=== PATIENT | female | born 1940 | race Caucasian/White ===

== ENCOUNTER 2016-08-21 08:58 | Observation (INO) ==
[2016-08-21] MEDS ORDERED: Acetaminophen 325 MG TABLET PO ONE (09:18)
--- NOTE | 2016-08-21 09:18 | Emergency Department Note ---
Disposition Clinical Impression: UTI (urinary tract infection) Qualifiers: Urinary tract infection type: acute cystitis Hematuria presence: without hematuria Qualified Code(s): N30.00 - Acute cystitis without hematuria Dementia Qualifiers: Dementia type: unspecified type Dementia behavioral disturbance: without behavioral disturbance Qualified Code(s): F03.90 - Unspecified dementia without behavioral disturbance Disposition: Admitted As Inpatient Condition: Fair Fall HPI - General Chief Complaint: ED Fall Stated Complaint: Fall Head Injury Time Seen by Provider: 08/21/16 09:06 Source: patient Nursing Notes Reviewed: Yes Vital Signs Reviewed: Yes - History of Present Illness HPI Narrative: Ms. Dahl, a 76yo female, presents from home by POV with daughter bedside. Chief complaint: Fall. Patient lives at home with her daughter. Daughter heard a sound at 1 AM and check on her mother who is in bed. It was dark and daughter did not notice anything unusual. cable braider this morning woke patient up and noticed blood on her pillow and pajamas. Patient states that she got up in the night and tripped but cannot remember what she tripped on. States she had the back of her head on the bed. Daughter cannot find blood or damage to any of the corners of the bed. When asked if the patient appears to be at her baseline, daughter notes that this is the first time the patient has not known her birthday. Denies the use of anticoagulants or antiplatelets. Patient denies headache, nausea, vomiting, chest pain, palpitations, abdominal pain, soreness or tenderness of her extremities or back. PMH: Dementia. remote CVA with right sided sequale. Multiple myeloma. COPD. CKD IV. Atrial fibrillation currently not anticoagulated. - Related Data Home Medications Medication Instructions Recorded Confirmed Cyanocobalamin (Vitamin B-12) 1,000 mcg PO DAILY 02/16/15 08/21/16 [Vitamin B-12] Montelukast [Singulair] 10 mg PO DAILY 02/16/15 08/21/16 Sucralfate [Carafate] 1 gm PO BID 02/16/15 08/21/16 Omeprazole [PriLOSEC] 20 mg PO BIDAC 02/20/15 08/21/16 Aspirin Enteric Coated [Aspirin] 81 mg PO DAILY 04/02/15 08/21/16 Atorvastatin Calcium [Lipitor] 20 mg PO DAILY 06/13/15 08/21/16 Donepezil HCl [Aricept] 10 mg PO HS 07/24/16 08/21/16 Lisinopril [Zestril] 10 mg PO DAILY 08/21/16 08/21/16 Oxybutynin [Ditropan] 5 mg PO BID 08/21/16 08/21/16 Previous Rx's Medication Instructions Recorded Ferrous Sulfate 325 mg PO BID #180 tablet 02/21/16 Carvedilol 3.125 mg PO BID #60 tablet 03/06/16 Folic Acid 1 mg PO DAILY #30 tablet 06/02/16 Prochlorperazine Maleate 10 mg PO Q6HR PRN #40 tablet 07/14/16 [Compazine] Allergies Allergy/AdvReac Type Severity Reaction Status Date / Time No Known Allergies Allergy Verified 05/05/16 08:55 All systems ED: reviewed and negative except as stated. Constitutional: Denies: fever, chills, weakness Eyes: Denies: vision change ENT ED: Reports: congestion. Denies: dysphagia Cardiovascular: Denies: chest pain, palpitations, dyspnea on exertion, orthopnea , edema, syncope Respiratory: Denies: cough, dyspnea, wheezes, hemoptysis, stridor Gastrointestinal: Denies: abdominal pain, nausea, vomiting, diarrhea, constipation, hematemesis, melena, hematochezia Genitourinary: Denies: urgency, dysuria, frequency Musculoskeletal: Reports: neck pain. Denies: back pain Integumentary: Reports: lesions. Denies: rash, abrasion Neurological: Denies: headache, weakness, numbness, paresthesias, confusion, vertigo Hematological/Lymphatic: Denies: easy bleeding, easy bruising Fall PMH - Past Medical History Medical history: Reports: arthritis, atrial fibrillation, cancer, COPD, CVA, dementia, GERD, hypertension, other Surgical history: Reports: no surgical history Psychiatric history: Reports: no psych history - Social History Smoking Status: Never smoker Alcohol use: Reports: none Drug use: Reports: none Physical Exam General: Patient is alert, and in no acute distress. She is oriented to self- stated her full name, oriented to birthdate, oriented to location-"ER", oriented to situation-"I fell." HEENT: No facial asymmetry. Head is normocephalic. 2 cm linear laceration over the patient's occiput. PERRLA, EOMI, trachea midline. Oral mucosa moist. Posterior pharynx without exudates, cobblestoning, or tonsillar swelling. Cardiovascular: Heart regular rate and rhythm without clicks, rubs, gallops, or murmurs. No JVD. PMI nondisplaced. Respiratory: Symmetric chest rise with good respiratory effort. Bilateral breath sounds are clear without wheezing, crackles, or rhonchi. Abdomen: Bowel sounds present normoactive x-4 quadrants. Abdomen is soft, nondistended, and nontender. No organomegaly noted. Musculoskeletal: Left-sided muscle strength 5/5 and symmetric in upper and lower extremities. Right-sided muscle strength 4/5 and symmetric in upper and lower extremities. DTRs 2/4 and symmetric bilaterally in upper and lower extremities. No midline spinal process tenderness along thoracic or lumbar spine. Neuro: Cranial nerves II through XII without deficit. Sensation light touch intact. No pronator drift. Psych: Patient's affect is appropriate for situation. - General Limitations: no limitations General appearance: alert Course Course Narrative: Per outreach and education social worker, via Home health: patient's home health has filed APS claim on the patient. Per home health, patient's dementia has caused her to wander out of her room. The family is afraid the patient may leave the house and is locking her in her room. Patient's son in law admits this and patient's family is open to assistance; i.e. senior living. Home health states the patient requires full assist to get up off the floor; i.e. the patient could not have placed herself back into bed. Per home health, the patient's pillows were stuck together with dried blood. Home health is concerned that the patient's posture is more stooped than usual. Straight catheter urine is concerning for UTI. The is a complicated UTI given patient's incontinence and failed outpatient Cipro and Flagyl. All of patient's imaging is negative. Cervical Spine CT 08/21/16 09:18 IMPRESSION: No acute abnormality of the cervical spine. D/ / Damien Reed MD / Damien Reed MD Interpreting Provider: Damien Reed MD Chest X-Ray 08/21/16 09:18 IMPRESSION: 1. Persistent enlargement of the cardiac silhouette with mild prominence of the pulmonary vasculature. 2. Otherwise, no convincing evidence of acute cardiopulmonary abnormality. 3. Minimal right basilar atelectasis. D/ / Jw Yancey MD / Jw Yancey MD Interpreting Provider: Jw Yancey MD Head CT 08/21/16 09:18 IMPRESSION: No acute intracranial abnormality. D/ / Damien Reed MD / Damien Reed MD Interpreting Provider: Damien Reed MD Lumbar Spine X-Ray 08/21/16 10:28 IMPRESSION: 1. No acute abnormality involving the lumbar spine. 2. Degenerative disc disease of the lumbar spine most pronounced at L5-S1. D/ / Luiz Chamberlain MD / Luiz Chamberlain MD Interpreting Provider: Luiz Chamberlain MD Thoracic Spine X-Ray 08/21/16 10:28 IMPRESSION: 1. No acute abnormality involving the thoracic spine. 2. Multilevel degenerative disc disease of the mid thoracic spine. D/ / Luiz Chamberlain MD / Luiz Chamberlain MD Interpreting Provider: Luiz Chamberlain MD Spoke with Dr. Valverde. He agrees to accept the patient with admission diagnosis of complicated urinary tract infection with failed outpatient antibiotics. Vital Signs Temperature 97.5 F L 08/21/16 09:00 Pulse Rate 96 08/21/16 09:00 Respiratory Rate 20 08/21/16 09:00 Blood Pressure 151/83 08/21/16 09:00 O2 Sat by Pulse Oximetry 90 L 08/21/16 09:00 Temperature 97.5 F L 08/21/16 09:00 Pulse Rate 77 08/21/16 12:55 Respiratory Rate 24 08/21/16 11:53 Blood Pressure 159/88 08/21/16 12:55 O2 Sat by Pulse Oximetry 97 08/21/16 12:55 Oxygen Delivery Oxygen Delivery Nasal Cannula Fall - Medical Records Medical records reviewed: Yes I reviewed the patient's medical records. - Lab Data Lab results reviewed: Yes I reviewed the patient's lab results. Result diagrams: 08/21/16 11:05 08/21/16 11:05 Lab Results 08/21/16 08/21/16 08/21/16 Range/Units 09:51 11:05 11:05 WBC 4.6 (4.3-11.1) K/mcL RBC 3.52 L (3.82-4.97) M/mcL Hgb 9.3 L (11.5-15.4) g/dL Hct 31.0 L (35.3-44.9) % MCV 88.1 (83.0-100.0) fL MCH 26.4 L (28.0-33.3) pg MCHC 30.0 L (31.6-35.5) g/dL RDW 16.4 H (11.5-14.5) % Plt Count 132 L (140-400) K/mcL MPV 12.3 (9.4-12.4) fL Immature Gran % 0.2 (0-4) % Seg Neutrophils % 69.0 % Lymphocytes % 15.3 % Monocytes % 13.8 % Eosinophils % 1.5 % Basophils % 0.2 % Neutrophils # 3.2 (1.6-8.9) K/mcL Lymphocytes # 0.7 (0.6-4.6) K/mcL Monocytes # 0.6 (0.0-1.3) K/mcL Eosinophils # 0.1 (0.0-0.6) K/mcL Basophils # 0.0 (0.0-0.2) K/mcL Sodium 140 (136-145) mEq/L Potassium 3.7 (3.5-4.5) mEq/L Chloride 107 (98-109) mEq/L Carbon Dioxide 25 (19-29) mEq/L BUN 26 H (7-20) mg/dL Creatinine 1.82 H (0.57-1.11) mg/dL Est GFR ( Amer) 33 L (> 60) Est GFR (Non-Af Amer) 27 L (> 60) BUN/Creatinine Ratio 14 (6-26) Glucose 101 H (70-99) mg/dL Calculated Osmolality 295 (280-300) Calcium 8.8 (8.6-10.8) mg/dL Urine Color Yellow (Yellow) Urine Clarity Cloudy A (Clear) Urine pH 7.5 (5.0-8.0) pH Units Ur Specific [place] 1.013 (1.010-1.025) Urine Protein 100 H (Neg-Trace) mg/dL Urine Glucose (UA) Normal (Normal) mg/dL Urine Ketones Negative (Negative) mg/dL Urine Blood Negative (Negative) Urine Nitrite Positive A (Negative) Urine Bilirubin Negative (Negative) Urine Urobilinogen Normal (Normal) mg/dL Ur Leukocyte Esterase Small H (Negative) Urine Microscopic RBC 0-3 (0-3) per hpf Urine Microscopic WBC 0-3 (0-3) per hpf Ur Squamous Epith Cells Many H (None-Few) per lpf Urine Bacteria Many H (None-Few) per hpf Hyaline Casts None Seen (None-Few) per lpf Ur Culture Indicated? YES A (NO) - Radiology Data Radiology results reviewed: Yes I reviewed the patient's radiology results. Cervical Spine CT 08/21/16 09:18 IMPRESSION: No acute abnormality of the cervical spine. D/ / Damien Reed MD / Damien Reed MD Interpreting Provider: Damien Reed MD Chest X-Ray 08/21/16 09:18 IMPRESSION: 1. Persistent enlargement of the cardiac silhouette with mild prominence of the pulmonary vasculature. 2. Otherwise, no convincing evidence of acute cardiopulmonary abnormality. 3. Minimal right basilar atelectasis. D/ / Jw Yancey MD / Jw Yancey MD Interpreting Provider: Jw Yancey MD Head CT 08/21/16 09:18 IMPRESSION: No acute intracranial abnormality. D/ / Damien Reed MD / Damien Reed MD Interpreting Provider: Damien Reed MD Lumbar Spine X-Ray 08/21/16 10:28 IMPRESSION: 1. No acute abnormality involving the lumbar spine. 2. Degenerative disc disease of the lumbar spine most pronounced at L5-S1. D/ / Luiz Chamberlain MD / Luiz Chamberlain MD Interpreting Provider: Luiz Chamberlain MD Thoracic Spine X-Ray 08/21/16 10:28 IMPRESSION: 1. No acute abnormality involving the thoracic spine. 2. Multilevel degenerative disc disease of the mid thoracic spine. D/ / Luiz Chamberlain MD / Luiz Chamberlain MD Interpreting Provider: Luiz Chamberlain MD - EKG Data EKG attestation: Yes I reviewed and interpreted this EKG. EKG results narrative: EKG dated 21 August 2016 sinus rhythm with a rate of 79. Normal intervals with [place] 171, QRS 94, QT/QTc 386/420. Left axis. Nonspecific ST-T changes. Compared to previous dated 03/18/2015 showing sinus rhythm with no acute ischemic changes in comparison. Attestation Statement - Attestation Attestation: I examined this patient and my medical decision-making was reviewed with the EXTRA GANG SUPERVISOR/PA/Advanced Practice Nurse/Resident Physician. I agree with the documented findings, disposition and treatment plan as described except to the extent set forth below. 76-year-old female presents ED because of injuries from a fall. Patient has progressive dementia and is becoming more difficult to manage at home. Today, she got up and went to the bathroom. Upon return she fell and struck her head. The patient does not have much recollection as to what caused her to fall. The fall was not witnessed. Patient denies any other complaints. No weakness. No hip pain. No chest pain or dyspnea. Family was concerned she has had a recent cough. No fevers Elderly female in no apparent distress. She is cooperative and interactive. FACE is clear. Mucous membranes moist. Neck is supple. Mild paraspinal tenderness of the cervical musculature. She has a 2.5 cm laceration on the occipital scalp as well. Chest is clear to auscultation except for some mild inspiratory rales in both bases. Cardiac exam regular. Chest wall is nontender. Hips are nontender. Pelvis is stable. Imaging in the ED was unremarkable for any acute process. Urinalysis was marginal. Concerns arose about the ability to care for her at home. The goal will be to only get her placed into a care facility. The wound will be repaired with keith. She is admitted for further medical evaluation and placement into an extended care facility
[2016-08-21 10:16] LABS: Bilirubin,Urine Negative (Negative); Blood,Urine Negative (Negative); Clarity,Urine Cloudy (Clear); Color,Urine Yellow (Yellow); Glucose,Urine (UA) Normal (Normal); Ketones,Urine Negative (Negative); Leukocyte Esterase,Urine Small (Negative); Nitrite,Urine Positive (Negative); PH,Urine 7.5 pH Units (5.0-8.0); Protein,Urine 100 mg/dL (Neg-Trace); Specific Gravity,Urine 1.013 (1.010-1.025); Urobilinogen,Urine Normal (Normal)
[2016-08-21 10:18] LABS: Bacteria,Urine Many per hpf (None-Few); Hyaline Casts,Urine None Seen per lpf (None-Few); RBC,Urine 0-3 per hpf (0-3); Squamous Epithelial Cell,Urine Many per lpf (None-Few); WBC,Urine 0-3 per hpf (0-3)
[2016-08-21 11:13] LABS: Basophils % 0.2 %; Eosinophils # 0.1 K/mcL (0.0-0.6); Eosinophils % 1.5 %; Hemoglobin 9.3 g/dL (11.5-15.4); Immature Granulocytes % 0.2 % (0-4); Lymphocytes # 0.7 K/mcL (0.6-4.6); Lymphocytes % 15.3 %; Mean Corpuscular Hemoglobin 26.4 pg (28.0-33.3); Mean Corpuscular Volume 88.1 fL (83.0-100.0); Mean Platelet Volume 12.3 fL (9.4-12.4); Monocytes # 0.6 K/mcL (0.0-1.3); Monocytes % 13.8 %; Neutrophils # 3.2 K/mcL (1.6-8.9); Platelet Count 132 K/mcL (140-400); Red Blood Count 3.52 M/mcL (3.82-4.97); Red Cell Distribution Width 16.4 % (11.5-14.5)
[2016-08-21 11:25] LABS: Calcium 8.8 mg/dL (8.6-10.8); Potassium 3.7 mEq/L (3.5-4.5)
[2016-08-21] MEDS ORDERED: Naloxone 0.4 MG/ML INJ IVP PRN (12:20)
[2016-08-21] MEDS ORDERED: MOM Conc 10 ML UD.LIQ PO PRN (12:20)
[2016-08-21] MEDS ORDERED: Ondansetron 4 MG/2 ML VIAL IVP PRN (12:20)
[2016-08-21] MEDS ORDERED: Mag Hydrox/Al Hydrox/Simeth 30 ML UDC PO PRN (12:20)
[2016-08-21] MEDS ORDERED: D5% in Water 100 ML ONE (12:29)
--- NOTE | 2016-08-21 12:36 | Internal Med History&Physical ---
<Brynn Rouse - Last Filed: 08/21/16 12:31> Date of Encounter: 08/21/16 Time of Encounter: 12:00 Assessment and Plan (1) UTI (urinary tract infection) Status: Acute Pt has had 2 UTIs since late May. She has been treated withCipro and Macrobid at home, returns today s/p fall with UTI. Urine cloudy, +nitrites, small amt leukocyte esterase, many bacteria, and epithelial cells. Today's specimen is a straight cath specimen. Pt is incontinent of urine normally and requires assistance with toileting and bathing. She is afebrile and does not appear to have CVA tenderness. Rocephin 1 gram IV daily, first dose given in ED. Qualifiers: Urinary tract infection type: acute cystitis Hematuria presence: without hematuria Qualified Code(s): N30.00 - Acute cystitis without hematuria (2) Fall Status: Acute Pt lives at home with family. Was found in her room this a.m. with blood on her clothing and her pillows. Pt has small, closed lac to occitput, bleeding controlled. Head CT negative for acute intracranial abnormality. Pt had xrays of C-spine, T-spine, and L-spine, all negative for fracture, T and L spine with degenerative changes. Pt will be seen by Dance Master for evaluation of possible placement to ECF. Social Service consult Fall precautions Up with assistance Bed alarm Qualifiers: Encounter type: initial encounter Qualified Code(s): W19.XXXA - Unspecified fall, initial encounter (3) Dementia Status: Chronic Pt is alert to name only. Lives at home with family and has home health aide. Per ER staff, family is having increasing difficulty caring for pt and are open to ECF placement. Plan as above and continue Aricept. Qualifiers: Dementia type: unspecified type Dementia behavioral disturbance: without behavioral disturbance Qualified Code(s): F03.90 - Unspecified dementia without behavioral disturbance (4) Multiple myeloma Status: Acute Stable. Was last seen for follow up at oncology in July,. Qualifiers: Multiple myeloma remission status: unspecified Qualified Code(s): C90.00 - Multiple myeloma not having achieved remission (5) COPD (chronic obstructive pulmonary disease) Status: Acute Lungs clear but diminished. Chest xray shows no acute pulmonary abnormality, bibasilar atelectasis. Pt wearing 3L 02, sats 97%. Budesonide nebs Albuterol nebs prn 02 n/c to maintain sats > 93% Qualifiers: COPD type: unspecified COPD Qualified Code(s): J44.9 - Chronic obstructive pulmonary disease, unspecified (6) CKD (chronic kidney disease) stage 4, GFR 15-29 ml/min Status: Chronic Creat 1.82, GFR 27, both appear to be at baseline. Avoid NSAIDs, nephrotoxins, monitor labs. Internal Medicine - H&P: HPI Chief complaint: fall today Admitted From: Home Plans for Post Hospital Care: Transfer [facility] Care History of present illness: Ms. Dahl is a 76 year old female with history of multiple myeloma, dementia , a-fib, cOPD, anemia, osteoporosis, Odom's esophagus. Home health aide arrived today and found pt to have dried blood on her bedding and her clothing. Family heard that they said they heard a thump during the night, but the pt was in bed when they checked on her. Pt has approx 1.5cm scabbed laceration to occiput, bleeding controlled. Pt appears to have no other injuries and head CT and spine xrays are all negative. Pt is alert to name only and does not answer questions, appears to be fixated on getting some pants on so that she can go home. Pt has had 2 UTIs since May and her urine today indicates another UTI. She received her first dose of Rocephin in the ED and will be admitted. Dance Master is involved to assist with placement to an ECF. Past Med Surg Social Fam HX - Past Medical History Medical history: arthritis, atrial fibrillation, cancer, COPD, CVA, dementia, GERD, hypertension, other Psychiatric history: no psych history - Past Surgical History Surgical History: no surgical history - Social History Smoking Status: Never smoker Smokeless Tobacco Status: No Alcohol use: none Drug use: none - Family History Mother Living Status: Hx Family Cardiac Disorders: Yes Hx Family Endocrine Disorder: Yes (DM) Internal Medicine - H&P: Meds Cyanocobalamin (Vitamin B-12) [Vitamin B-12] 1,000 mcg PO DAILY 02/16/15 [ History] Montelukast [Singulair] 10 mg PO DAILY 02/16/15 [History] Sucralfate [Carafate] 1 gm PO BID 02/16/15 [History] Omeprazole [PriLOSEC] 20 mg PO BIDAC 02/20/15 [History] Aspirin Enteric Coated [Aspirin EC] 81 mg PO DAILY 04/02/15 [History] Atorvastatin Calcium [Lipitor] 20 mg PO DAILY 06/13/15 [History] Ferrous Sulfate 325 mg PO BID #180 tablet 02/21/16 [Rx] Carvedilol 3.125 mg PO BID #60 tablet 03/06/16 [Rx] Folic Acid 1 mg PO DAILY #30 tablet 06/02/16 [Rx] Prochlorperazine Maleate [Compazine] 10 mg PO Q6HR PRN #40 tablet 07/14/16 [Rx] Donepezil HCl [Aricept] 10 mg PO HS 07/24/16 [History] Lisinopril [Zestril] 10 mg PO DAILY 08/21/16 [History] Oxybutynin [Ditropan] 5 mg PO BID 08/21/16 [History] Levofloxacin 500 mg PO DAILY #5 tablet 08/23/16 [Rx] Allergies No Known Allergies Allergy (Verified 05/05/16 08:55) ROS unobtainable: due to mental status All Systems PM: A 10-system review of systems was performed and is negative for pertinent findings except as documented above in the HPI. Review of systems: Pt does not answer questions other than to say that she is not having pain. All information gathered from ED staff. - Constitutional Constitutional: falls, weakness - Cardiovascular Cardiovascular ROS IM: no chest pain - Respiratory Respiratory: no pain on inspiration - Gastrointestinal Gastrointestinal: no abdominal pain - Musculoskeletal Musculoskeletal ROS IM: muscle weakness - Constitutional Vitals: Temp Pulse Resp BP Pulse Ox 97.5 F L 82 24 159/88 97 08/21/16 09:00 08/21/16 11:53 08/21/16 11:53 08/21/16 11:53 08/21/16 11:53 General appearance: Present: cooperative, A&O X 3, pleasant. Absent: answers questions appropriately - Expanded Head Exam Head exam expanded: Present: laceration. Absent: hematoma, raccoon eyes - Eye Eye exam: Present: normal appearance, PERRL, conjuntiva pink. Absent: periorbital swelling - ENT ENT exam: Present: mucous membranes dry, normal external ear exam - Neck Neck exam general surgery: Present: normal inspection. Absent: tenderness - Respiratory Respiratory exam: Present: decreased breath sounds, CTAB. Absent: accessory muscle use, chest wall tenderness, respiratory distress, rhonchi, stridor, wheezes - Cardiovascular Cardiovascular exam: Present: RRR, +S1, +S2. Absent: diastolic murmur, systolic murmur - GI/Abdominal GI/Abdominal exam: Present: normal bowel sounds, soft. Absent: hepatomegaly, mass, tenderness - Extremities Exam Extremities exam: Present: normal capillary refill, normal inspection, warm, radial pulses palpable and symetrical. Absent: cyanotic, joint swelling, pedal edema, tenderness Additional comments: Pt does not appear to have any bruising, lacerations, or abrasions to ant or post BLE. No edema, palpable pedal pulses cait. - Back Exam Back exam: Present: normal inspection, paraspinal tenderness. Absent: tenderness, vertebral tenderness Additional comments: No bruising, injuries, tenderness noted. - Neurological Exam Neurological exam: Present: alert, strengths equal and symetr throughout. Absent: speech deficit - Expanded Neurological Exam Patient oriented to: Present: person. Absent: place, time - Skin Skin exam: Present: normal color, warm. Absent: erythema, rash Internal Med - H&P Results - Labs CBC & Chem 7: 08/21/16 11:05 08/21/16 11:05 - EKG Data EKG comments: 08/21/16 12:42 Ectopic atrial rhythm Vent rate 79 AZ interval 171 QRS 95 QTc 420 <Jr Valverde P - Last Filed: 09/01/16 19:26> Date of Encounter: 08/21/16 Internal Medicine - H&P: HPI History of present illness: Ms. Dahl is a 76 year old female All Systems PM: A 10-system review of systems was performed and is negative for pertinent findings except as documented above in the HPI. - Constitutional Vitals: Temp Pulse Resp BP Pulse Ox 98.0 F 75 20 136/85 96 08/21/16 13:32 08/21/16 13:32 08/21/16 13:32 08/21/16 13:32 08/21/16 13:32 Internal Med - H&P Results - Labs CBC & Chem 7: 08/22/16 05:19 08/22/16 05:19 - Attending Attestation I examined this patient and my medical decision-making was reviewed with the MASTER HEARTH TECHNICIAN/PA/Advanced Practice Nurse/Resident Physician. I agree with the documented findings, disposition and treatment plan as described except to the extent set forth below.
[2016-08-21] MEDS ORDERED: Albuterol 2.5 MG/3 ML NEBULIZER IH PRN (12:56)
[2016-08-21] MEDS ORDERED: Lidocaine -MPF 2% 5 ML VIAL INFILT ONE (14:14)
[2016-08-21] MEDS: Budesonide Neb 0.25 MG/2 ML IH SCH ×2 (19:46→21:14)
[2016-08-21] MEDS: Acetaminophen 325 MG TABLET PO PRN (21:11)
[2016-08-21] MEDS ORDERED: SODIUM CHLORIDE/NAHCO3/KCL/PEG 4,000 ML SOLN.RECON PO ONE (22:15)
[2016-08-22 07:06] LABS: Basophils % 0.2 %; Eosinophils # 0.2 K/mcL (0.0-0.6); Eosinophils % 3.6 %; Hematocrit 31.8 % (35.3-44.9); Hemoglobin 9.8 g/dL (11.5-15.4); Immature Granulocytes % 0.4 % (0-4); Lymphocytes # 0.7 K/mcL (0.6-4.6); Lymphocytes % 16.4 %; Mean Corpuscular HGB Conc 30.8 g/dL (31.6-35.5); Mean Corpuscular Hemoglobin 26.8 pg (28.0-33.3); Mean Corpuscular Volume 87.1 fL (83.0-100.0); Mean Platelet Volume 12.9 fL (9.4-12.4); Monocytes # 0.6 K/mcL (0.0-1.3); Monocytes % 12.8 %; Platelet Count 122 K/mcL (140-400); Red Blood Count 3.65 M/mcL (3.82-4.97); Red Cell Distribution Width 16.3 % (11.5-14.5); Segmented Neutrophils % 66.6 %
[2016-08-22 09:31] LABS: Calcium 8.2 mg/dL (8.6-10.8); Potassium 3.8 mEq/L (3.5-4.5)
[2016-08-22] MEDS: Budesonide Neb 0.25 MG/2 ML IH SCH ×2 (11:19→22:44)
[2016-08-22] MEDS ORDERED: Aspirin 81 MG TAB.CHEW PO SCH (12:00)
--- NOTE | 2016-08-22 15:19 | Internal Med Progress Note ---
Date of Encounter: 08/22/16 Time of Encounter: 15:16 - Assessment and plan (1) Dementia Current Visit: Yes Status: Acute Assessment and plan: stable Qualifiers: Dementia type: unspecified type Dementia behavioral disturbance: without behavioral disturbance Qualified Code(s): F03.90 - Unspecified dementia without behavioral disturbance (2) Fall Current Visit: Yes Status: Acute Assessment and plan: s/p fall, no fractures. CT head showed no bleed. Qualifiers: Encounter type: initial encounter Qualified Code(s): W19.XXXA - Unspecified fall, initial encounter (3) UTI (urinary tract infection) Current Visit: Yes Status: Acute Assessment and plan: being tretaed wt IV ceftriaxone. No fever, we will continue to follow up culture results. Qualifiers: Urinary tract infection type: acute cystitis Hematuria presence: without hematuria Qualified Code(s): N30.00 - Acute cystitis without hematuria (4) CKD (chronic kidney disease) stage 4, GFR 15-29 ml/min Current Visit: Yes Status: Chronic Assessment and plan: stable, will continue to monitor (5) COPD (chronic obstructive pulmonary disease) Current Visit: No Status: Acute Assessment and plan: not in exacerbation. Qualifiers: COPD type: unspecified COPD Qualified Code(s): J44.9 - Chronic obstructive pulmonary disease, unspecified (6) Multiple myeloma Current Visit: No Status: Acute Assessment and plan: bieng followed by oncology at [facility] Qualifiers: Multiple myeloma remission status: unspecified Qualified Code(s): C90.00 - Multiple myeloma not having achieved remission - Time Spent With Patient 25 - 35 minutes - Subjective Interval history: Patient seen at the bedside, denies any complaints at this time. Appears to be at baseline, does not appear confused regarding any distress. Reports that she fell and hit her head, had sutures placed on her scalp. Currently being treated for UTI, PT OT has been consulted. - Constitutional Vitals: Temp Pulse Resp BP Pulse Ox 98.4 F 69 14 116/75 92 L 08/22/16 14:49 08/22/16 14:49 08/22/16 14:49 08/22/16 14:49 08/22/16 14:49 General appearance: Present: cooperative, A&O X 3, pleasant. Absent: answers questions appropriately Exam: - Neck Neck exam general surgery: Present: normal inspection. Absent: tenderness - Respiratory Respiratory exam: Present: decreased breath sounds, CTAB. Absent: accessory muscle use, chest wall tenderness, respiratory distress, rhonchi, stridor, wheezes - Cardiovascular Cardiovascular exam: Present: RRR, +S1, +S2. Absent: diastolic murmur, systolic murmur - GI/Abdominal GI/Abdominal exam: Present: normal bowel sounds, soft. Absent: hepatomegaly, mass, tenderness - Extremities Exam Extremities exam: Present: normal capillary refill, normal inspection, warm, radial pulses palpable and symetrical. Absent: cyanotic, joint swelling, pedal edema, tenderness Additional comments: Pt does not appear to have any bruising, lacerations, or abrasions to ant or post BLE. No edema, palpable pedal pulses cait. - Back Exam Back exam: Present: normal inspection, paraspinal tenderness. Absent: tenderness, vertebral tenderness Additional comments: No bruising, injuries, tenderness noted. - Neurological Exam Neurological exam: Present: alert, strengths equal and symetr throughout. Absent: speech deficit - Expanded Neurological Exam Patient oriented to: Present: person. Absent: place, time - Skin Skin exam: Present: normal color, warm. Absent: erythema, rash Internal Medicine: Result - Labs CBC & Chem 7: 08/22/16 05:19 08/22/16 05:19 Labs: Short CBC 08/22/16 Range/Units 05:19 WBC 4.5 (4.3-11.1) K/mcL Hgb 9.8 L (11.5-15.4) g/dL Hct 31.8 L (35.3-44.9) % Plt Count 122 L (140-400) K/mcL Neutrophils # 3.0 (1.6-8.9) K/mcL BMP 08/22/16 05:19 Sodium 142 Potassium 3.8 Chloride 109 Carbon Dioxide 21 BUN 25 H Creatinine 1.64 H Glucose 79 Calcium 8.2 L Consult Discharge Plan - Plan Referrals: Jaci Pandya CNP [Primary Care Provider] -
[2016-08-22] MEDS ORDERED: Sucralfate 1 GM TABLET PO SCH (17:00)
--- NOTE | 2016-08-22 17:12 | Electrocardiograph Report ---
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
[2016-08-22] MEDS: Sucralfate 1 GM TABLET PO SCH (17:49)
[2016-08-22] MEDS: Acetaminophen 325 MG TABLET PO PRN (20:42)
[2016-08-23 07:22] VITALS: BP 139/81
[2016-08-23] MEDS: Budesonide Neb 0.25 MG/2 ML IH SCH (08:03)
[2016-08-23] MEDS ORDERED: Cyanocobalamin (B-12) 1,000 MCG TABLET PO SCH (09:00)
[2016-08-23] MEDS ORDERED: Aspirin Enteric Coated 81 MG Tablet PO SCH (09:00)
[2016-08-23] MEDS ORDERED: Folic Acid 1 MG TABLET PO SCH (09:00)
--- NOTE | 2016-08-23 09:26 | Discharge Summary ---
Date of Encounter: 08/23/16 Time of Encounter: 09:22 - Discharge Diagnosis (1) Dementia Priority: Secondary Status: Acute Qualifiers: Dementia type: unspecified type Dementia behavioral disturbance: without behavioral disturbance Qualified Code(s): F03.90 - Unspecified dementia without behavioral disturbance (2) Fall Priority: Secondary Status: Acute Qualifiers: Encounter type: initial encounter Qualified Code(s): W19.XXXA - Unspecified fall, initial encounter (3) UTI (urinary tract infection) Priority: Primary Status: Acute Qualifiers: Urinary tract infection type: acute cystitis Hematuria presence: without hematuria Qualified Code(s): N30.00 - Acute cystitis without hematuria (4) CKD (chronic kidney disease) stage 4, GFR 15-29 ml/min Priority: Secondary Status: Chronic (5) COPD (chronic obstructive pulmonary disease) Priority: Secondary Status: Acute Qualifiers: COPD type: unspecified COPD Qualified Code(s): J44.9 - Chronic obstructive pulmonary disease, unspecified (6) Multiple myeloma Priority: Secondary Status: Acute Qualifiers: Multiple myeloma remission status: unspecified Qualified Code(s): C90.00 - Multiple myeloma not having achieved remission - Discharge Medications Prescriptions: Levofloxacin 500 mg PO DAILY #5 tablet Home Medications: Cyanocobalamin (Vitamin B-12) [Vitamin B-12] 1,000 mcg PO DAILY 02/16/15 [ History] Montelukast [Singulair] 10 mg PO DAILY 02/16/15 [History] Sucralfate [Carafate] 1 gm PO BID 02/16/15 [History] Omeprazole [PriLOSEC] 20 mg PO BIDAC 02/20/15 [History] Aspirin Enteric Coated [Aspirin EC] 81 mg PO DAILY 04/02/15 [History] Atorvastatin Calcium [Lipitor] 20 mg PO DAILY 06/13/15 [History] Ferrous Sulfate 325 mg PO BID #180 tablet 02/21/16 [Rx] Carvedilol 3.125 mg PO BID #60 tablet 03/06/16 [Rx] Folic Acid 1 mg PO DAILY #30 tablet 06/02/16 [Rx] Prochlorperazine Maleate [Compazine] 10 mg PO Q6HR PRN #40 tablet 07/14/16 [Rx] Donepezil HCl [Aricept] 10 mg PO HS 07/24/16 [History] Lisinopril [Zestril] 10 mg PO DAILY 08/21/16 [History] Oxybutynin [Ditropan] 5 mg PO BID 08/21/16 [History] Levofloxacin 500 mg PO DAILY #5 tablet 08/23/16 [Rx] Allergies/Adverse Reactions: Allergies No Known Allergies Allergy (Verified 05/05/16 08:55) Date of admission: 08/21/16 12:21 Primary care physician: Jaci Pandya CNP Consults: 08/22/16 14:24 Consult to Pump Attendant [CONS] Stat Reason for SW Consult: discharge planning Discharging clinician: Denton Angeles Anticipated date of discharge: 08/23/16 - Patient Status Disposition: Transfer SNF Condition: Fair Functional capacity at discharge: uses cane/walker Overall status at discharge: patient is back to baseline - Discharge Instructions Follow Up With: Jaci Pandya CNP [Primary Care Provider] - 08/25/16 10:30 am - Diet and Activity Activity: as per physical therapy Diet: advance to your usual diet Interval History: Ms. Dahl is a 76 year old female with history of multiple myeloma, dementia , a-fib, cOPD, anemia, osteoporosis, Odmo's esophagus. Home health aide arrived today and found pt to have dried blood on her bedding and her clothing. Family heard that they said they heard a thump during the night, but the pt was in bed when they checked on her. Pt has approx 1.5cm scabbed laceration to occiput, bleeding controlled. Pt appears to have no other injuries and head CT and spine xrays are all negative. Pt is alert to name only , demented at baseline, no focal neuro defecits. Pt has had 2 UTIs since May and her indicates another UTI. She received her first dose of Rocephin in the ED and will be admitted. she was tretaed with IV antibiotics, she remaonined stable and at [facility] in [place] in stable condition Hospital course: Ms. Dahl is a 76 year old female Time spent discussing smoking cessation with patient: more than 10 minutes - Time Spent with Patient Total time spent providing and/or coordinating discharge services: Greater than 30 minutes - Constitutional Vitals: Temp Pulse Resp BP Pulse Ox 97.5 F L 80 18 139/81 94 L 03/04/17 07:00 08/23/16 07:00 08/23/16 08:07 08/23/16 07:00 08/23/16 08:07 General appearance: Present: cooperative, A&O X 3, pleasant. Absent: answers questions appropriately Exam: - Eye Eye exam: Present: normal appearance, PERRL, conjuntiva pink. Absent: periorbital swelling - ENT ENT exam: Present: mucous membranes dry, normal external ear exam - Neck Neck exam general surgery: Present: normal inspection. Absent: tenderness - Respiratory Respiratory exam: Present: decreased breath sounds, CTAB. Absent: accessory muscle use, chest wall tenderness, respiratory distress, rhonchi, stridor, wheezes - Cardiovascular Cardiovascular exam: Present: RRR, +S1, +S2. Absent: diastolic murmur, systolic murmur - GI/Abdominal GI/Abdominal exam: Present: normal bowel sounds, soft. Absent: hepatomegaly, mass, tenderness - Extremities Exam Extremities exam: Present: normal capillary refill, normal inspection, warm, radial pulses palpable and symetrical. Absent: cyanotic, joint swelling, pedal edema, tenderness Additional comments: Pt does not appear to have any bruising, lacerations, or abrasions to ant or post BLE. No edema, palpable pedal pulses cait. - Back Exam Back exam: Present: normal inspection, paraspinal tenderness. Absent: tenderness, vertebral tenderness Additional comments: No bruising, injuries, tenderness noted. - Neurological Exam Neurological exam: Present: alert, strengths equal and symetr throughout. Absent: speech deficit - Expanded Neurological Exam Patient oriented to: Present: person. Absent: place, time - Skin Skin exam: Present: normal color, warm. Absent: erythema, rash
--- NOTE | 2016-08-23 09:27 | Physician Discharge Referral ---
ExtendedCare Referral Info Transfer To: PENDING SALE TO [facility] Provider in Charge: ojse marc Institutional Level of Care: Intermediate - MR - Diagnosis (1) Dementia Status: Acute (2) Fall Status: Acute (3) UTI (urinary tract infection) Status: Acute (4) CKD (chronic kidney disease) stage 4, GFR 15-29 ml/min Status: Chronic (5) COPD (chronic obstructive pulmonary disease) Status: Acute (6) Multiple myeloma Status: Acute - Transfer Medications Prescriptions: Levofloxacin 500 mg PO DAILY #5 tablet Home Medications: Cyanocobalamin (Vitamin B-12) [Vitamin B-12] 1,000 mcg PO DAILY 02/16/15 [ History] Montelukast [Singulair] 10 mg PO DAILY 02/16/15 [History] Sucralfate [Carafate] 1 gm PO BID 02/16/15 [History] Omeprazole [PriLOSEC] 20 mg PO BIDAC 02/20/15 [History] Aspirin Enteric Coated [Aspirin EC] 81 mg PO DAILY 04/02/15 [History] Atorvastatin Calcium [Lipitor] 20 mg PO DAILY 06/13/15 [History] Ferrous Sulfate 325 mg PO BID #180 tablet 02/21/16 [Rx] Carvedilol 3.125 mg PO BID #60 tablet 03/06/16 [Rx] Folic Acid 1 mg PO DAILY #30 tablet 06/02/16 [Rx] Prochlorperazine Maleate [Compazine] 10 mg PO Q6HR PRN #40 tablet 07/14/16 [Rx] Donepezil HCl [Aricept] 10 mg PO HS 07/24/16 [History] Lisinopril [Zestril] 10 mg PO DAILY 08/21/16 [History] Oxybutynin [Ditropan] 5 mg PO BID 08/21/16 [History] Levofloxacin 500 mg PO DAILY #5 tablet 08/23/16 [Rx] Allergies/Adverse Reactions: Allergies No Known Allergies Allergy (Verified 05/05/16 08:55) - Respiratory Orders Oxygen / L per min (3-4l/min) Smoking Cessation: Smoking cessation has been advised. For more information, call the [employer] Tobacco Quit Line at 1-061-BMVA-NOW. - Advance Directives Code Status: Full Code - Mobility Orders Chair, Ambulate - Rehabiliation Orders Rehab Potential: Fair Rehab Orders: Evaluation for Physical Therapy, Evaluation for Occupational Therapy - Diet Orders Regular CERTIFICATION: I certify that the transfer of the above named patient to an Extended Care Facility is necessary for the continuing treatment of the diagnosis listed. The above information is true and accurate reflection of patient's current condition. Confidential - Redisclosure prohibited without a patient's written consent.
[2016-08-23] MEDS: Sucralfate 1 GM TABLET PO SCH (09:42)
== END 2016-08-23 15:15 ==
LOC: 3ANU 08:58 → EMEROO 08:58 → 3ANU 13:25
PROVIDERS: ADMIT Internal Medicine; ATTEND Internal Medicine Endocrinology, Diabetes & Metabolism

== ENCOUNTER 2017-03-26 10:49 | Observation (INO) ==
[2017-03-26 11:49] LABS: Bilirubin,Urine Negative (Negative); Blood,Urine Small (Negative); Color,Urine Yellow (Yellow); Glucose,Urine (UA) Normal (Normal); Ketones,Urine Negative (Negative); Leukocyte Esterase,Urine Large (Negative); Nitrite,Urine Negative (Negative); Protein,Urine 100 mg/dL (Neg-Trace); Specific Gravity,Urine 1.009 (1.010-1.025); Urobilinogen,Urine Normal (Normal)
[2017-03-26 11:51] LABS: Bacteria,Urine Many per hpf (None-Few); Hyaline Casts,Urine None Seen per lpf (None-Few); Squamous Epithelial Cell,Urine Many per lpf (None-Few); WBC,Urine TNTC per hpf (0-3)
[2017-03-26 11:54] LABS: Clarity,Urine Slightly Hazy (Clear)
[2017-03-26 11:59] LABS: INR 1.2; Prothrombin Time 12.9 Seconds (9.4-12.1)
[2017-03-26 12:02] LABS: Activated Partial Thrombo Time 35.2 Seconds (26.0-36.0)
--- NOTE | 2017-03-26 12:04 | Emergency Department Note ---
Disposition Clinical Impression: Right sided weakness UTI (urinary tract infection) Qualifiers: Urinary tract infection type: site unspecified Hematuria presence: with hematuria Qualified Code(s): N39.0 - Urinary tract infection, site not specified Disposition: Admitted As Inpatient Condition: Fair Neuro HPI - General Chief Complaint: ED Neuro Symptoms/Deficit Stated Complaint: neuro symptoms x1 week Time Seen by Provider: 03/26/17 11:10 Source: patient, EMS Mode of arrival: EMS Limitations: physical limitation Nursing Notes Reviewed: Yes Vital Signs Reviewed: Yes - History of Present Illness HPI Narrative: 76-year-old female history of gastric cancer, prior CVA and TIA who presents to the ER from the oncology clinic due to right sided weakness. Patient states her weakness started yesterday. She states that these are the same symptoms she had whenever she had a stroke years ago. She states that those symptoms resolved. States that her right arm and leg feel heavy and she feels numb on that side. She is unsure when her last stroke was or who her neurologist is. She does not know she takes any antiplatelet or anticoagulation medications. She does state that she lives at [facility]. Onset of Symptoms Date: 03/25/17 Timing confirmed by: other Location: right arm, right leg History of same: Yes Severity: moderate Quality: weakness, numbness Symptoms Improving: No Improves with: none Worsens with: none Context: gradual onset On Anticoagulants: No Associated symptoms: Denies: chest pain, fever/chills, headaches, nausea/ vomiting Treatments Prior to Arrival: none - Related Data Home Medications: Home Medications Medication Instructions Recorded Confirmed Cyanocobalamin (Vitamin B-12) 1,000 mcg PO DAILY 02/16/15 03/26/17 [Vitamin B-12] Montelukast [Singulair] 10 mg PO DAILY 02/16/15 03/26/17 Sucralfate [Carafate] 1 gm PO BID 02/16/15 03/26/17 Omeprazole [PriLOSEC] 20 mg PO DAILY 02/20/15 03/26/17 Aspirin Enteric Coated [Aspirin EC] 81 mg PO DAILY 04/02/15 03/26/17 Atorvastatin Calcium [Lipitor] 20 mg PO HS 06/13/15 03/26/17 Donepezil HCl [Aricept] 10 mg PO HS 07/24/16 03/26/17 Lisinopril [Zestril] 10 mg PO DAILY 08/21/16 03/26/17 Formoterol Fumarate [Perforomist] 2 ml IH BID 11/25/16 03/26/17 Ipratropium/Albuterol Neb [Duoneb] 3 ml IH Q6HR 11/25/16 03/26/17 Diclofenac Sodium [Voltaren] 4 gm TP QID 01/19/17 03/26/17 Pramipexole [Mirapex] 0.5 mg PO HS 01/19/17 03/26/17 Budesonide [Pulmicort] 0.5 mg IH BID 02/12/17 03/26/17 Tramadol HCl [Ultram] 50 mg PO Q6H PRN 02/12/17 03/26/17 Previous Rx's Medication Instructions Recorded Ferrous Sulfate 325 mg PO BID #180 tablet 02/21/16 Carvedilol 3.125 mg PO BID #60 tablet 03/06/16 Folic Acid 1 mg PO DAILY #30 tablet 06/02/16 Allergies/Adverse Reactions: Allergies Allergy/AdvReac Type Severity Reaction Status Date / Time No Known Allergies Allergy Verified 03/26/17 10:54 All systems ED: reviewed and negative except as stated. Cardiovascular: Denies: chest pain Respiratory: Denies: dyspnea Gastrointestinal: Denies: abdominal pain, nausea, vomiting Neurological: Reports: weakness, numbness. Denies: headache, paresthesias Past Medical History - Past Medical History Attestation: Yes The following information was validated with the patient. Source: patient Medical history: Reports: arthritis, atrial fibrillation, cancer, COPD, CVA, dementia, GERD, hypertension, other Surgical history: Reports: no surgical history Psychiatric history: Reports: no psych history - Social History Smoking Status: Former smoker Smokeless Tobacco Status: No Alcohol use: Reports: none Drug use: Reports: none Physical Exam - General Limitations: physical limitation General appearance: alert, in no apparent distress - Head Head exam: atraumatic, normocephalic, normal inspection - Eye Eye exam: Present: normal appearance, EOMI - ENT ENT exam: normal exam - Neck Neck exam: Present: normal inspection, full ROM - Chest Chest inspection: Present: normal inspection, symmetric chest wall rise - Respiratory Respiratory exam: Present: normal lung sounds bilaterally - Cardiovascular Cardiovascular exam: Present: regular rate, normal rhythm, normal heart sounds - Abdominal Exam Abdominal exam: Present: soft, Non-Tender. Absent: tenderness, distention, rigidity - Extremities Exam Extremities exam: Present: normal inspection - Expanded Upper Extremity Exam Shoulder exam: Present: normal inspection Arm exam: Present: normal inspection Elbow exam: Present: normal inspection Forearm/Wrist exam: Present: normal inspection Hand exam: Present: normal inspection Vascular exam: Normal: capillary refill, radial pulse - Expanded Lower Extremity Exam Hip/Pelvis exam: Present: normal inspection Upper leg exam: Present: normal inspection Knee exam: Present: normal inspection Lower leg exam: Present: normal inspection Ankle exam: Present: normal inspection Foot/toe exam: Present: normal inspection - Neurological Exam Neurological exam: Present: alert, oriented X3, CN II-XII intact - Expanded Neurological Exam Speech: Present: fluid speech Cranial nerves: EOM function (II, III, IV, ): Normal, facial sensation (V): Normal, spinal accessory function (XI): Normal, tongue deviation (XII): Normal Motor strength - LUE: 4/5 Motor strength - RUE: 4/5 Motor strength - LLE: 4/5 Motor strength - RLE: 4/5 Sensory exam upper extremity: light touch: Abnormal Right Sensory exam lower extremity: light touch: Abnormal Right Coma Scale Eye Opening: Spontaneous Coma Scale Motor Response: Obeys Commands Coma Scale Verbal Response: Oriented Coma Scale Total: 15 - Psychiatric Psychiatric exam: Present: normal affect, normal mood - Skin Skin exam: Present: warm, dry, intact, normal color Course Course Narrative: Patient seen and examined. She has right-sided weakness on exam. Otherwise nonfocal. She is outside the window for any emergent intervention. We will obtain a CT scan of the head as well as labs and urinalysis. Patient will likely require admission for neurodeficit. - Reevaluation(s) Reevaluation #1: Discussed results of imaging and lab work with the patient. Vital Signs Temperature 98.2 F 03/26/17 10:54 Pulse Rate 65 03/26/17 10:54 Respiratory Rate 15 03/26/17 10:54 Blood Pressure 143/66 03/26/17 10:54 O2 Sat by Pulse Oximetry 97 03/26/17 10:54 Temperature 97.9 F 03/26/17 18:35 Pulse Rate 101 03/26/17 18:35 Respiratory Rate 16 03/26/17 18:35 Blood Pressure 128/82 03/26/17 18:35 O2 Sat by Pulse Oximetry 97 03/26/17 18:35 Oxygen Delivery Oxygen Delivery Room Air Neuro Symptoms/Deficit - MDM Narrative Medical decision making narrative: 76-year-old female presents to the ER due to right-sided weakness. Poor historian but reports it started yesterday. Referred here by the oncology center. She has right-sided weakness in comparison to the left. No other neurologic findings on exam. Does have a UTI. CT shows no acute findings of her head. Patient admitted to the hospitalist service for right-sided weakness and UTI. - Lab Data Lab results reviewed: Yes I reviewed the patient's lab results. Result diagrams: 03/26/17 11:48 03/26/17 11:48 Lab Results 03/26/17 03/26/17 03/26/17 Range/Units 11:39 11:48 11:48 WBC 4.5 (4.3-11.1) K/mcL RBC 3.77 L (3.82-4.97) M/mcL Hgb 10.7 L (11.5-15.4) g/dL Hct 33.5 L (35.3-44.9) % MCV 88.9 (83.0-100.0) fL MCH 28.4 (28.0-33.3) pg MCHC 31.9 (31.6-35.5) g/dL RDW 15.1 H (11.5-14.5) % Plt Count 130 L (140-400) K/mcL MPV 11.8 (9.4-12.4) fL Immature Gran % 0.2 (0-4) % Seg Neutrophils % 59.0 % Lymphocytes % 27.6 % Monocytes % 10.4 % Eosinophils % 2.6 % Basophils % 0.2 % Neutrophils # 2.7 (1.6-8.9) K/mcL Lymphocytes # 1.3 (0.6-4.6) K/mcL Monocytes # 0.5 (0.0-1.3) K/mcL Eosinophils # 0.1 (0.0-0.6) K/mcL Basophils # 0.0 (0.0-0.2) K/mcL PT 12.9 H (9.4-12.1) Seconds INR 1.2 APTT 35.2 (26.0-36.0) Seconds Sodium (136-145) mEq/L Potassium (3.5-4.5) mEq/L Chloride (98-109) mEq/L Carbon Dioxide (19-29) mEq/L BUN (7-20) mg/dL Creatinine (0.57-1.11) mg/dL Est GFR ( Amer) (> 60) Est GFR (Non-Af Amer) (> 60) BUN/Creatinine Ratio (6-26) Glucose (70-99) mg/dL Calculated Osmolality (280-300) Calcium (8.6-10.8) mg/dL Troponin I (0-0.03) ng/mL Urine Color Yellow (Yellow) Urine Clarity Slightly Hazy (Clear) Urine pH 6.0 (5.0-8.0) pH Units Ur Specific [place] 1.009 L (1.010-1.025) Urine Protein 100 H (Neg-Trace) mg/dL Urine Glucose (UA) Normal (Normal) mg/dL Urine Ketones Negative (Negative) mg/dL Urine Blood Small H (Negative) Urine Nitrite Negative (Negative) Urine Bilirubin Negative (Negative) Urine Urobilinogen Normal (Normal) mg/dL Ur Leukocyte Esterase Large H (Negative) Urine Microscopic RBC 5-15 H (0-3) per hpf Urine Microscopic WBC TNTC H (0-3) per hpf Ur Squamous Epith Cells Many H (None-Few) per lpf Urine Bacteria Many H (None-Few) per hpf Hyaline Casts None Seen (None-Few) per lpf Ur Culture Indicated? YES A (NO) 03/26/17 03/26/17 Range/Units 11:48 11:48 WBC (4.3-11.1) K/mcL RBC (3.82-4.97) M/mcL Hgb (11.5-15.4) g/dL Hct (35.3-44.9) % MCV (83.0-100.0) fL MCH (28.0-33.3) pg MCHC (31.6-35.5) g/dL RDW (11.5-14.5) % Plt Count (140-400) K/mcL MPV (9.4-12.4) fL Immature Gran % (0-4) % Seg Neutrophils % % Lymphocytes % % Monocytes % % Eosinophils % % Basophils % % Neutrophils # (1.6-8.9) K/mcL Lymphocytes # (0.6-4.6) K/mcL Monocytes # (0.0-1.3) K/mcL Eosinophils # (0.0-0.6) K/mcL Basophils # (0.0-0.2) K/mcL PT (9.4-12.1) Seconds INR APTT (26.0-36.0) Seconds Sodium 137 (136-145) mEq/L Potassium 4.0 (3.5-4.5) mEq/L Chloride 104 (98-109) mEq/L Carbon Dioxide 24 (19-29) mEq/L BUN 20 (7-20) mg/dL Creatinine 1.26 H (0.57-1.11) mg/dL Est GFR ( Amer) 50 L (> 60) Est GFR (Non-Af Amer) 41 L (> 60) BUN/Creatinine Ratio 16 (6-26) Glucose 83 (70-99) mg/dL Calculated Osmolality 286 (280-300) Calcium 9.4 (8.6-10.8) mg/dL Troponin I 0.01 (0-0.03) ng/mL Urine Color (Yellow) Urine Clarity (Clear) Urine pH (5.0-8.0) pH Units Ur Specific [place] (1.010-1.025) Urine Protein (Neg-Trace) mg/dL Urine Glucose (UA) (Normal) mg/dL Urine Ketones (Negative) mg/dL Urine Blood (Negative) Urine Nitrite (Negative) Urine Bilirubin (Negative) Urine Urobilinogen (Normal) mg/dL Ur Leukocyte Esterase (Negative) Urine Microscopic RBC (0-3) per hpf Urine Microscopic WBC (0-3) per hpf Ur Squamous Epith Cells (None-Few) per lpf Urine Bacteria (None-Few) per hpf Hyaline Casts (None-Few) per lpf Ur Culture Indicated? (NO) - Radiology Data Radiology results reviewed: Yes I reviewed the patient's radiology results. Chest X-Ray 03/26/17 11:39 IMPRESSION: Stable examination without acute focal process. Bibasilar atelectasis and findings of emphysema. D/ / Orlin Dominguez MD / Orlin Dominguez MD Interpreting Provider: Orlin Dominguez MD Head CT 03/26/17 11:40 IMPRESSION: No acute intracranial abnormality. D/ / Damien Reed MD / Damien Reed MD Interpreting Provider: Damien Reed MD - EKG Data EKG attestation: Yes I reviewed and interpreted this EKG. EKG results narrative: EKG demonstrates sinus rhythm with a rate of 67 bpm. Left axis deviation. Normal intervals. T-wave inversions in lead V1 and V2. No gross ST elevations or depressions. No acute ischemic findings. No significant changes from previous EKG dated 08/21/16. NIH Stroke Scale - Level of Consciousness LOC: Alert - LOC Questions LOC Questions: Answers both correctly - LOC Commands LOC Commands: Performs both correctly - Best Gaze Best Gaze: Normal - Visual Visual: No visual loss - Facial Palsy Facial Palsy: Normal - Motor Arms Motor Arm-Left: No drift for 10 seconds Motor Arm-Right: Drift, does NOT hit bed - Motor Legs Motor Leg-Left: No drift for 5 seconds Motor Leg-Right: Drift, does NOT hit bed - Limb Ataxia Limb Ataxia: Absent of affected limb too weak to perform exam - Sensory Sensory: Normal - Best Language Best Language: No aphasia - Dysarthria Dysarthria: Normal - Extinction and Inattention Extinction and Inattention: Normal - NIHSS Total Score NIHSS Total Score: 2 S.B.A.R. - S.B.A.R. Situation: Demographics, MOA Background: Presenting Complaint, Relevant PMH, Meds, & Allergies Assessment: Vital Signs, Course and respsone to treatment, Exam Concerns, Patient/Family Expectation, Pertinant Lab Results, Outstanding Labs Recommendation: Barrier(s) to disposition, Recommendation based on pending studies, treatments, or consults S.B.A.R. Report Given to: Dr. Ravindra Acosta Repor Time: 14:50 Attestation Statement - Attestation Attestation: I examined this patient and my medical decision-making was reviewed with the Resident Physician, Dr. Sanders. I agree with the documented findings, disposition and treatment plan as described except to the extent set forth below. Pt is a 76 yo wf, hx of gastric CA, prior CVA with R sided weakness who was sent from her oncologist's office for sxs of R sided weakness with concerns for recurrent CVA. Pt arrives with clear speech, and c/o RUE/RLE weakness and numbness. Pt reports that this began yesterday, over 24 hours ago. PT states that she feels like it has gradually worsened in severity. No CP/press, no SOB, no diaphoresis, no dizziness/vertigo, no visual changes. Pt denies any other sxs. Pt with poor insight into her health hx, most of info obtained from records in system. I agree with the pt's PE findings as documented. Pt's sxs began over 24 hours ago, and pt with baseline RUE/RLE weakness from prior CVA, so difficult to tell if worse than baseline. Pt doesn't know what medications she takes, only knowns she resides at [facility]. Pt with unremakrable workup in the ED. Negative imaging, no acute findings on EKG/CXR. Pt found to have UTI. Remainder of labs wnl. Pt with stable exam over time from reassessments in the ED. Will admit for R sided weakness/numbness, and UTI. D/W hospitalist who accepted pt for admission.
[2017-03-26 12:06] LABS: Basophils % 0.2 %; Eosinophils # 0.1 K/mcL (0.0-0.6); Eosinophils % 2.6 %; Hematocrit 33.5 % (35.3-44.9); Hemoglobin 10.7 g/dL (11.5-15.4); Immature Granulocytes % 0.2 % (0-4); Lymphocytes # 1.3 K/mcL (0.6-4.6); Lymphocytes % 27.6 %; Mean Corpuscular HGB Conc 31.9 g/dL (31.6-35.5); Mean Corpuscular Hemoglobin 28.4 pg (28.0-33.3); Mean Corpuscular Volume 88.9 fL (83.0-100.0); Mean Platelet Volume 11.8 fL (9.4-12.4); Monocytes # 0.5 K/mcL (0.0-1.3); Monocytes % 10.4 %; Neutrophils # 2.7 K/mcL (1.6-8.9); Platelet Count 130 K/mcL (140-400); Red Blood Count 3.77 M/mcL (3.82-4.97); Red Cell Distribution Width 15.1 % (11.5-14.5)
[2017-03-26 12:07] LABS: Calcium 9.4 mg/dL (8.6-10.8)
[2017-03-26] MEDS ORDERED: Acetaminophen 325 MG TABLET PO PRN (16:39)
[2017-03-26] MEDS ORDERED: traMADol 50 MG TABLET PO PRN (16:44)
[2017-03-26] MEDS ORDERED: Ipratropium/Albuterol Neb 3 ML IH PRN (16:44)
--- NOTE | 2017-03-26 17:00 | Internal Med History&Physical ---
Date of Encounter: 03/26/17 Time of Encounter: 16:58 Assessment and Plan (1) Right sided weakness Current visit: Yes Status: Acute Right-sided upper and lower extremity weakness. Concerning for CVA/TIA. CT scan of the head does not reveal any acute stroke. We will get MRI of the brain , carotid Dopplers and 2-D echocardiogram. Continue aspirin and statin. PTOT consult. Moderate risk for complications (2) Anemia Current visit: Yes Status: Chronic Due to multiple myeloma and chronic kidney disease. Hemoglobin 10.7. We will monitor. Qualifiers: Anemia type: other cause Other causes of anemia: chronic disease, neoplastic Qualified Code(s): D63.0 - Anemia in neoplastic disease (3) Chronic kidney disease, stage III (moderate) Current visit: Yes Status: Chronic Creatinine 1.26. At baseline. (4) COPD (chronic obstructive pulmonary disease) Current visit: Yes Status: Chronic Not in acute exacerbation. Use bronchodilators as needed. Qualifiers: COPD type: emphysema Emphysema type: panlobular Qualified Code(s): J43.1 - Panlobular emphysema (5) Multiple myeloma Current visit: Yes Status: Chronic Follow-up outpatient with oncology. Qualifiers: Multiple myeloma remission status: unspecified Qualified Code(s): C90.00 - Multiple myeloma not having achieved remission (6) UTI (urinary tract infection) Current visit: Yes Status: Acute Urinalysis suggests possible urinary tract infection. Patient started on ceftriaxone. Will continue and await urine culture results. Qualifiers: Urinary tract infection type: acute cystitis Hematuria presence: without hematuria Qualified Code(s): N30.00 - Acute cystitis without hematuria Internal Medicine - H&P: HPI Chief complaint: Right-sided weakness Admitted From: Emergency Dept Plans for Post Hospital Care: Transfer Group Home Facility History of present illness: Ms. Dahl is a 76 year old female patient with a history of multiple myeloma , previous CVA who was sent over to the ER from cancer Center after complaining of right sided weakness. She reports that she has been having weakness on the right side for about 2 days now. She feels that it is improving. It involved both right upper and lower extremities. She feels more stronger in the right lower extremity now. Denies any numbness or speech difficulty. I did not notice any facial droop. She says she had similar kind of symptoms during her prior CVA. Her strength had improved since then. She denies any dysuria or abdominal pain. No fever or chills. She does complain of nasal condition from recent cold. No cough or sputum production. Past Med Surg Social Fam HX - Past Medical History Attestation: Yes The following information was validated with the patient. Source: patient, old records reviewed Medical history: arthritis, atrial fibrillation, cancer, COPD, CVA, dementia, GERD, hypertension, other Psychiatric history: no psych history - Past Surgical History Surgical History: no surgical history - Social History Smoking Status: Former smoker Smokeless Tobacco Status: No Alcohol use: none Drug use: none - Family History Mother Living Status: Hx Family Cardiac Disorders: Yes Hx Family Endocrine Disorder: Yes (DM) Internal Medicine - H&P: Meds Cyanocobalamin (Vitamin B-12) [Vitamin B-12] 1,000 mcg PO DAILY 02/16/15 [ History] Montelukast [Singulair] 10 mg PO DAILY 02/16/15 [History] Sucralfate [Carafate] 1 gm PO BID 02/16/15 [History] Omeprazole [PriLOSEC] 20 mg PO DAILY 02/20/15 [History] Aspirin Enteric Coated [Aspirin EC] 81 mg PO DAILY 04/02/15 [History] Atorvastatin Calcium [Lipitor] 20 mg PO HS 06/13/15 [History] Ferrous Sulfate 325 mg PO BID #180 tablet 02/21/16 [Rx] Carvedilol 3.125 mg PO BID #60 tablet 03/06/16 [Rx] Folic Acid 1 mg PO DAILY #30 tablet 06/02/16 [Rx] Donepezil HCl [Aricept] 10 mg PO HS 07/24/16 [History] Lisinopril [Zestril] 10 mg PO DAILY 08/21/16 [History] Formoterol Fumarate [Perforomist] 2 ml IH BID 11/25/16 [History] Ipratropium/Albuterol Neb [Duoneb] 3 ml IH Q6HR 11/25/16 [History] Diclofenac Sodium [Voltaren] 4 gm TP QID 01/19/17 [History] Pramipexole [Mirapex] 0.5 mg PO HS 01/19/17 [History] Budesonide [Pulmicort] 0.5 mg IH BID 02/12/17 [History] Tramadol HCl [Ultram] 50 mg PO Q6H PRN 02/12/17 [History] 3 Allergy/AdvReac Type Severity Reaction Status Date / Time No Known Allergies Allergy Verified 03/26/17 10:54 All Systems PM: A 10-system review of systems was performed and is negative for pertinent findings except as documented above in the HPI. - Constitutional Constitutional: no chills, no fever(s), no night sweats - EENT Eyes: no change in vision, no discharge, no pain, no photophobia Ears: no ear discharge, no ear pain, no tinnitus Nose, mouth and throat: nasal congestion, no dysphagia, no nasal discharge, no neck pain, no sore throat - Cardiovascular Cardiovascular ROS IM: no chest pain, no diaphoresis, no dyspnea, no lightheadedness, no palpitations, no syncope - Respiratory Respiratory: no cough, no dyspnea, no wheezing, no excessive phlegm production - Gastrointestinal Gastrointestinal: no abdominal pain, no diarrhea, no hematemesis, no hematochezia, no melena, no nausea, no vomiting - Genitourinary Genitourinary: no change in urinary stream, no dysuria, no flank pain, no hematuria - Musculoskeletal Musculoskeletal ROS IM: no numbness, no tingling - Integumentary Integumentary IM: no rash, no unusual bruising - Neurological Neurological ROS: weakness, no confusion, no convulsions, no focal weakness, no numbness, no tingling, no tremor(s) - Endocrine Endocrine IM: no cold intolerance, no heat intolerance - Hematologic/Lymphatic Hematologic/Lymphatic: no easy bruising - Constitutional Vitals: Temp Pulse Resp BP Pulse Ox 97.7 F 77 16 143/91 95 03/26/17 15:50 03/26/17 15:50 03/26/17 15:50 03/26/17 15:50 03/26/17 15:50 General appearance: Present: cooperative, A&O X 3, no acute distress, answers questions appropriately - Eye Eye exam: Present: EOMI, PERRL, conjuntiva pink, sclera anicteric - Neck Neck exam general surgery: Present: supple, trachea midline. Absent: lymphadenopathy - Respiratory Respiratory exam: Present: CTAB. Absent: accessory muscle use, rales, rhonchi, wheezes - Cardiovascular Cardiovascular exam: Present: RRR, +S1, +S2. Absent: diastolic murmur, gallop, rubs, systolic murmur - GI/Abdominal GI/Abdominal exam: Present: normal bowel sounds, soft, no peritoneal signs. Absent: distended, tenderness - Extremities Exam Extremities exam: Present: warm, radial pulses palpable and symmetrical. Absent : calf tenderness, cyanotic, pedal edema - Neurological Exam Neurological exam: Present: CN II-XII intact, oriented X3, no focal deficits. Absent: facial droop, speech deficit Additional comments: Strength 4/5 in right upper extremity. 5 /5 in all other extremities - Psychiatric Psychiatric exam: Present: normal affect, normal mood - Skin Skin exam: Present: dry, intact Internal Med - H&P Results - Labs CBC & Chem 7: 03/26/17 11:48 03/26/17 11:48 - EKG Data -: EKG Interpreted by Myself EKG shows normal: sinus rhythm - EKG Data Prior EKG available for review: yes When compared to previous EKG: there is no significant change EKG comments: 03/26/17 17:27 Sinus rhythm with old inferior Q waves. - Impressions Impressions Chest X-Ray 03/26/17 11:39 IMPRESSION: Stable examination without acute focal process. Bibasilar atelectasis and findings of emphysema. D/ / Orlin Dominguez MD / Orlin Dominguez MD Interpreting Provider: Orlin Dominguez MD Head CT 03/26/17 11:40 IMPRESSION: No acute intracranial abnormality. D/ / Damien Reed MD / Damien Reed MD Interpreting Provider: Damien Reed MD
[2017-03-26] MEDS: *HR* Heparin 5,000 UNIT/ML VIAL SQ SCH (17:05)
[2017-03-26] MEDS: Budesonide Neb 0.5 MG/2 ML IH SCH (19:42)
--- NOTE | 2017-03-26 21:57 | Electrocardiograph Report ---
[facility] Audit Test Date: 2017-03-26 Pat Name: Nelly Dahl Department: 103 Room: 3B31 Gender: F Intervention Manager: AM : 1940 Requested By: Xavier Sanders Order Number: [id number] Reading MD: Stuart Toth MD Measurements Intervals [place] Rate: 67 P: -5 MN: 176 QRS: -13 QRSD: 89 T: 40 QT: 407 QTc: 423 Interpretive Statements SINUS RHYTHM LOW QRS VOLTAGE IN PRECORDIAL LEADS Electronically Signed On 03-26-2017 21:55:45 EDT by Stuart Toth MD
[2017-03-26] MEDS: Sucralfate 1 GM TABLET PO SCH (23:22)
[2017-03-26] MEDS: PERFOROMIST IH SCH (23:24)
[2017-03-27 04:11] LABS: Hemoglobin A1C 5.6 %
[2017-03-27 04:23] LABS: Chol/HDL Ratio 3.1 (0-4.9)
[2017-03-27] MEDS: *HR* Heparin 5,000 UNIT/ML VIAL SQ SCH (05:45)
--- NOTE | 2017-03-27 06:53 | Carotid Imaging Report ---
Carotid Duplex Patient Name:Nelly Dahl Order Number:[id number] Procedure Date:03/26/2017 Date:1940ge:76 yrs Gender:Female Location:[facility] Room #: 3B31 Desulfurizer Hand:Angelica Bosch, RDCS, RVT Referring MD:Supriya Covarrubias MD Reading MD:Jamey Drew MD Primary Indications:Right sided weakness, TIA Risk Factors Yes/No Hx of CVA Yes Smoker Previous Yes Impressions: The bilateral carotid arteries have minimal plaque throughout. Findings Carotid Duplex: Right: The right proximal common carotid artery has a PSV of 38 cm/s and a EDV of 17 cm/s. The right mid common carotid artery has a PSV of 52 cm/s and a EDV of 17 cm/s. The right distal common carotid artery has a PSV of 62 cm/s and a EDV of 19 cm/s. The right bifurcation has a PSV of 61 cm/s and a EDV of 22 cm/s. The right proximal internal carotid artery has a PSV of 69 cm/s and a EDV of 25 cm/s. The right mid internal carotid artery has a PSV of 79 cm/s and a EDV of 29 cm/s. The right distal internal carotid artery has a PSV of 90 cm/s and a EDV of 30 cm/s. The right eca has a PSV of 71 cm/s and a EDV of 9 cm/s. The right vertebral artery has a PSV of 38 cm/s and a EDV of 9 cm/s. Left: The left proximal common carotid artery has a PSV of 41 cm/s and a EDV of 14 cm/s. The left mid common carotid artery has a PSV of 55 cm/s and a EDV of 17 cm/s. The left distal common carotid artery has a PSV of 48 cm/s and a EDV of 18 cm/s. The left bifurcation has a PSV of 43 cm/s and a EDV of 13 cm/s. The left proximal internal carotid artery has a PSV of 58 cm/s and a EDV of 25 cm/s. The left mid internal carotid artery has a PSV of 66 cm/s and a EDV of 28 cm/s. The left distal internal carotid artery has a PSV of 71 cm/s and a EDV of 29 cm/s. The left eca has a PSV of 78 cm/s and a EDV of 10 cm/s. The left vertebral artery has a PSV of 61 cm/s and a EDV of 20 cm/s. Carotid Results Right PSV EDV Assessment Proximal CCA 38 17 Mid CCA 52 17 Non Stenotic Plaque Distal CCA 62 19 Non Stenotic Plaque Bifurcation 61 22 Non Stenotic Plaque Proximal ICA 69 25 Non Stenotic Plaque Mid ICA 79 29 Distal ICA 90 30 ECA 71 9 Vertebral Artery 38 9 Antegrade Flow Left PSV EDV Assessment Proximal CCA 41 14 Mid CCA 55 17 Non Stenotic Plaque Distal CCA 48 18 Bifurcation 43 13 Non Stenotic Plaque Proximal ICA 58 25 Mid ICA 66 28 Distal ICA 71 29 ECA 78 10 Vertebral Artery 61 20 Antegrade Flow Ratio's Right ICA/CCA Ratio: 1.73 ICA/CCA Values: 90/52 Left ICA/CCA Ratio: 1.29 ICA/CCA Values: 71/55 Updated by Jamey Drew MD on 03/27/2017 6:43:33 AM electronically signed on 03/27/2017 6:44:20 AM with status of Final
[2017-03-27] MEDS: Sucralfate 1 GM TABLET PO SCH (08:36)
[2017-03-27] MEDS ORDERED: Folic Acid 1 MG TABLET PO SCH (09:00)
[2017-03-27] MEDS ORDERED: Cyanocobalamin (B-12) 1,000 MCG TABLET PO SCH (09:00)
[2017-03-27] MEDS ORDERED: Aspirin Enteric Coated 81 MG Tablet PO SCH (09:00)
[2017-03-27] MEDS: Budesonide Neb 0.5 MG/2 ML IH SCH (10:08)
[2017-03-27] MEDS: PERFOROMIST IH SCH (10:28)
[2017-03-27] MEDS ORDERED: *HR* LORazepam 2 MG/ML VIAL IVP ONE (11:01)
[2017-03-27 15:12] VITALS: BP 109/74
--- NOTE | 2017-03-27 15:39 | Discharge Summary ---
Date of Encounter: 03/27/17 Time of Encounter: 09:00 - Discharge Diagnosis (1) Right sided weakness Priority: Primary Status: Acute (2) Anemia Priority: Secondary Status: Chronic Qualifiers: Anemia type: other cause Other causes of anemia: chronic disease, neoplastic Qualified Code(s): D63.0 - Anemia in neoplastic disease (3) Chronic kidney disease, stage III (moderate) Priority: Secondary Status: Chronic (4) COPD (chronic obstructive pulmonary disease) Priority: Secondary Status: Chronic Qualifiers: COPD type: emphysema Emphysema type: panlobular Qualified Code(s): J43.1 - Panlobular emphysema (5) Multiple myeloma Priority: Secondary Status: Chronic Qualifiers: Multiple myeloma remission status: unspecified Qualified Code(s): C90.00 - Multiple myeloma not having achieved remission (6) UTI (urinary tract infection) Priority: Secondary Status: Acute Qualifiers: Urinary tract infection type: acute cystitis Hematuria presence: without hematuria Qualified Code(s): N30.00 - Acute cystitis without hematuria - Discharge Medications Prescriptions: Ciprofloxacin [Cipro] 500 mg PO BID #14 tablet Tramadol HCl [Ultram] 50 mg PO Q6H PRN #14 tablet PRN Reason: Pain Home Medications: Cyanocobalamin (Vitamin B-12) [Vitamin B-12] 1,000 mcg PO DAILY 02/16/15 [ History] Montelukast [Singulair] 10 mg PO DAILY 02/16/15 [History] Sucralfate [Carafate] 1 gm PO BID 02/16/15 [History] Omeprazole [PriLOSEC] 20 mg PO DAILY 02/20/15 [History] Aspirin Enteric Coated [Aspirin EC] 81 mg PO DAILY 04/02/15 [History] Atorvastatin Calcium [Lipitor] 20 mg PO HS 06/13/15 [History] Ferrous Sulfate 325 mg PO BID #180 tablet 02/21/16 [Rx] Carvedilol 3.125 mg PO BID #60 tablet 03/06/16 [Rx] Folic Acid 1 mg PO DAILY #30 tablet 06/02/16 [Rx] Donepezil HCl [Aricept] 10 mg PO HS 07/24/16 [History] Lisinopril [Zestril] 10 mg PO DAILY 08/21/16 [History] Formoterol Fumarate [Perforomist] 2 ml IH BID 11/25/16 [History] Ipratropium/Albuterol Neb [Duoneb] 3 ml IH Q6HR 11/25/16 [History] Diclofenac Sodium [Voltaren] 4 gm TP QID 01/19/17 [History] Pramipexole [Mirapex] 0.5 mg PO HS 01/19/17 [History] Budesonide [Pulmicort] 0.5 mg IH BID 02/12/17 [History] Ciprofloxacin [Cipro] 500 mg PO BID #14 tablet 03/27/17 [Rx] Tramadol HCl [Ultram] 50 mg PO Q6H PRN #14 tablet 03/27/17 [Rx] Allergies/Adverse Reactions: 3 Allergy/AdvReac Type Severity Reaction Status Date / Time No Known Allergies Allergy Verified 03/26/17 10:54 Procedures/tests Complete & Pending: Procedures Performed prior 72 hours Category Date Time Status MR head/brain wo con [MR] Routine MRI 03/27/17 16:43 Completed EV carotid duplex imaging BI Routine Y 03/26/17 16:42 Completed EV echocardiogram Routine Y 03/26/17 16:42 Completed Date of admission: 03/26/17 14:57 Primary care physician: Jaci Pandya CNP Consults: 03/26/17 16:46 Consult to Occupational Therapy [CONS] Routine Comment: Evaluate, develop and implement POC Reason for Consult: RIght sided weakness Consult to Physical Therapy [CONS] Routine Comment: Evaluate, develop and implement POC Reason for Consult: RIght sided weakness Consult to Commissioner Conservation Of Resources [CONS] Routine Reason for SW Consult: Discharge Planning Discharging clinician: Supriya Covarrubias Anticipated date of discharge: 03/27/17 - Patient Status Disposition: Transfer SNF Condition: Good Functional capacity at discharge: uses cane/walker Overall status at discharge: patient is progressing back to baseline - Discharge Instructions Instructions: Urinary Tract Infection in Women (DC) Follow Up With: Jaci Pandya CNP [Primary Care Provider] - (in 1-2 weeks) - Diet and Activity Activity: as per physical therapy, increase activity as tolerated Diet: low fat, low cholesterol, low salt diet Hospital course: Ms. Dahl is a 76 year old female patient with history of multiple myeloma, prior CVA, dementia who presented to the ER with complaints of right-sided weakness mainly involving the right upper extremity. CT scan of the head done yesterday did not show any acute stroke. Patient was observed for workup for possible TIA. She underwent carotid Dopplers which showed minimal plaque. 2-D echocardiogram was done which showed normal ejection fraction without any PFO. Infarct. Patient did have chronic infarcts. This morning she is feeling much better. Her strength has returned to normal. She is stable for discharge. She will continue to take aspirin and statin. Patient does have a history of atrial fibrillation but is not on anticoagulation most likely due to underlying multiple myeloma with anemia and thrombocytopenia. Patient has also been diagnosed with acute urinary tract infection. Her urine is growing gram-negative rods. She will be discharged on ciprofloxacin. - Time Spent with Patient Total time spent providing and/or coordinating discharge services: Greater than 30 minutes (35 min) - Constitutional Vitals: Temp Pulse Resp BP Pulse Ox 96.4 F L 70 15 109/74 94 03/27/17 15:10 03/27/17 15:10 03/27/17 15:10 03/27/17 15:10 03/27/17 15:10 General appearance: Present: cooperative, A&O X 3, no acute distress, answers questions appropriately - Respiratory Respiratory exam: Present: CTAB. Absent: accessory muscle use, rales, rhonchi, wheezes - Cardiovascular Cardiovascular exam: Present: RRR, +S1, +S2. Absent: diastolic murmur, gallop, rubs, systolic murmur - Extremities Exam Extremities exam: Present: warm, radial pulses palpable and symmetrical. Absent : calf tenderness, cyanotic, pedal edema - Neurological Exam Neurological exam: Present: CN II-XII intact, oriented X3, no focal deficits, strengths equal and symetr throughout. Absent: pronater drift, facial droop, speech deficit
--- NOTE | 2017-03-27 15:47 | Physician Discharge Referral ---
ExtendedCare Referral Info Provider in Charge after Transfer: PCP Institutional Level of Care: Skilled - Diagnosis (1) Right sided weakness Priority: Primary Status: Acute (2) Anemia Priority: Secondary Status: Chronic (3) Chronic kidney disease, stage III (moderate) Priority: Secondary Status: Chronic (4) COPD (chronic obstructive pulmonary disease) Priority: Secondary Status: Chronic (5) Multiple myeloma Priority: Secondary Status: Chronic (6) UTI (urinary tract infection) Priority: Secondary Status: Acute Prognosis: Fair Aware of Diagnosis: Patient Aware of Prognosis: Patient - Transfer Medications Prescriptions: Ciprofloxacin [Cipro] 500 mg PO BID #14 tablet Tramadol HCl [Ultram] 50 mg PO Q6H PRN #14 tablet PRN Reason: Pain Home Medications: Cyanocobalamin (Vitamin B-12) [Vitamin B-12] 1,000 mcg PO DAILY 02/16/15 [ History] Montelukast [Singulair] 10 mg PO DAILY 02/16/15 [History] Sucralfate [Carafate] 1 gm PO BID 02/16/15 [History] Omeprazole [PriLOSEC] 20 mg PO DAILY 02/20/15 [History] Aspirin Enteric Coated [Aspirin EC] 81 mg PO DAILY 04/02/15 [History] Atorvastatin Calcium [Lipitor] 20 mg PO HS 06/13/15 [History] Ferrous Sulfate 325 mg PO BID #180 tablet 02/21/16 [Rx] Carvedilol 3.125 mg PO BID #60 tablet 03/06/16 [Rx] Folic Acid 1 mg PO DAILY #30 tablet 06/02/16 [Rx] Donepezil HCl [Aricept] 10 mg PO HS 07/24/16 [History] Lisinopril [Zestril] 10 mg PO DAILY 08/21/16 [History] Formoterol Fumarate [Perforomist] 2 ml IH BID 11/25/16 [History] Ipratropium/Albuterol Neb [Duoneb] 3 ml IH Q6HR 11/25/16 [History] Diclofenac Sodium [Voltaren] 4 gm TP QID 01/19/17 [History] Pramipexole [Mirapex] 0.5 mg PO HS 01/19/17 [History] Budesonide [Pulmicort] 0.5 mg IH BID 02/12/17 [History] Ciprofloxacin [Cipro] 500 mg PO BID #14 tablet 03/27/17 [Rx] Tramadol HCl [Ultram] 50 mg PO Q6H PRN #14 tablet 03/27/17 [Rx] Allergies/Adverse Reactions: 3 Allergy/AdvReac Type Severity Reaction Status Date / Time No Known Allergies Allergy Verified 03/26/17 10:54 - Respiratory Orders Smoking Cessation: Smoking cessation has been advised. For more information, call the [employer] Quit Line at 9-547-SCMU-NOW. - Ancillary Orders May consult with Dentist, Apparel Pattern Maker, Newspaper Manager PRN - Advance Directives Code Status: Full Code - Mobility Orders Other (per PT) - Rehabiliation Orders Rehab Potential: Fair Rehab Orders: Evaluation for Physical Therapy, Evaluation for Occupational Therapy - Diet Orders Cardiac CERTIFICATION: I certify that the transfer of the above named patient to an Extended Care Facility is necessary for the continuing treatment of the diagnosis listed. The above information is true and accurate reflection of patient's current condition. Confidential - Redisclosure prohibited without a patient's written consent.
== END 2017-03-27 17:03 ==
LOC: EMEROO 10:49 → 3BNU 10:49 → SUATTDRO 14:57 → 3BNU 15:25
PROVIDERS: ADMIT Internal Medicine; ATTEND Internal Medicine

== ENCOUNTER 2018-12-01 08:53 | Inpatient (IN) ==
--- NOTE | 2018-12-01 09:08 | Emergency Department Note ---
Disposition Clinical Impression: Multiple myeloma Disposition: Admitted As Inpatient Condition: Fair Time of Disposition: 13:48 SOB HPI - General Stated Complaint: sera Time Seen by Provider: 12/01/18 08:55 - History of Present Illness Patient is an 78-year-old female with a history of dementia, multiple myeloma, COPD that presents here to the emergency room with complaints of increasing shortness of breath. Family states that she has had a cough about 2 weeks. Patient is receiving chemotherapy, she was exercised over from the cancer clinic for rule out pneumonia. The patient however denies any high fevers. The family states that is correct. The patient does complain of some middle chest discomfort that she says is a 9 in terms of pain. Nothing else makes it better or worse. The patient is a somewhat unreliable historian secondary to her dementia history. Patient seemingly has had a nonproductive cough, she denies any leg pain or swelling. She denies any other urinary complaints. She has had no nausea or vomiting. History of present illness and review of systems is limited secondary to the patient's cognitive status. - Related Data Home Medications Medication Instructions Recorded Confirmed Montelukast [Singulair] 10 mg PO DAILY 02/16/15 12/01/18 Omeprazole [PriLOSEC] 20 mg PO DAILY 02/20/15 12/01/18 Aspirin Enteric Coated [Aspirin EC] 81 mg PO DAILY 04/02/15 12/01/18 Donepezil HCl [Aricept] 5 mg PO HS 07/24/16 12/01/18 Pramipexole [Mirapex] 0.5 mg PO HS 01/19/17 12/01/18 Mirtazapine [Remeron] 15 mg PO HS 11/11/17 12/01/18 Acetaminophen [Extra Strength 500 mg PO QID PRN 12/02/17 12/01/18 Non-Aspirin] Cyanocobalamin (Vitamin B-12) 1,000 mcg PO DAILY 12/02/17 12/01/18 [Vitamin B12] Carboxymethylcellulose Sodium 15 ml OP BID 12/09/17 12/01/18 [Refresh Tears] Lisinopril 2.5 mg PO DAILY 09/08/18 12/01/18 Loperamide [Imodium] 2 mg PO Q8H PRN 09/08/18 12/01/18 Acetaminophen [Tylenol] 650 mg PO QID 11/18/18 12/01/18 Atorvastatin Calcium [Lipitor] 20 mg PO DAILY 12/01/18 12/01/18 Calcium Carbonate [Tums] 1,000 mg PO Q4HR 12/01/18 12/01/18 Flu Vac Hd (65Yr Up)Pf 0.5 ml IM ONCE 12/01/18 12/01/18 [Fluzone High-Dose Syr] Guaifenesin [Cough Syrup] 100 mg PO Q4HR PRN 12/01/18 12/01/18 HydrOXYzine 10 mg PO Q8HR PRN 12/01/18 12/01/18 Mirabegron [Myrbetriq] 50 mg PO DAILY 12/01/18 12/01/18 Mirtazapine [Remeron] 15 mg PO HS 12/01/18 12/01/18 Ondansetron ODT [Zofran ODT] 4 mg PO Q6HR PRN 12/01/18 12/01/18 Previous Rx's Medication Instructions Recorded Carvedilol 3.125 mg PO BID #60 tablet 03/06/16 Acyclovir [Zovirax] 400 mg PO BID #60 tablet 09/08/18 Calcium Carbonate [Tums] 1,000 mg PO Q4HR PRN #30 tab.chew 09/29/18 Allergies Allergy/AdvReac Type Severity Reaction Status Date / Time No Known Allergies Allergy Verified 12/01/18 08:15 Review of Systems: As Per HPI Limitations: ROS unobtainable due to patients medical condition Past Medical History - Past Medical History Medical history: Reports: arthritis, atrial fibrillation, cancer, COPD, CVA, dementia, GERD, hypertension, other Surgical history: Reports: no surgical history Psychiatric history: Reports: no psych history - Social History Smoking Status: Former smoker Smokeless Tobacco Status: No Alcohol use: Reports: none Drug use: Reports: none Physical Exam PHYSICAL EXAM Constitutional: Well developed, overall cachectic appearing, Non-toxic appearance. HENT: Normocephalic, Atraumatic, Bilateral external ears normal, Oropharynx moist, No oral exudates, Nose normal. Neck- Normal range of motion, No tenderness, Supple. Eyes: PERRL, EOMI, Conjunctiva normal,. Cardiovascular: Regular rate and rhythm without clicks, rubs, gallops . +2 systolic murmur Respiratory: Diminished breath sounds bilaterally, no severe distress noted. Emergency room do not appreciate significant wheezing or rhonchi.. GI: Soft, nontender, no evidence of guarding or peritoneal signs. Bowel sounds are active. Musculoskeletal: Patient does have a brace on the right lower extremity. The patient has global diffuse weakness, somewhat worse over the right side. No significant tenderness with palpation noted to the extremities Integument: Warm, Dry, No erythema, No rash. No edema. Neurologic: Alert, Normal sensory function, No focal deficits noted. CN II-XII grossly intact. Course Vital Signs Temperature 98.3 F 12/01/18 08:58 Pulse Rate 89 12/01/18 08:58 Respiratory Rate 18 12/01/18 08:58 Blood Pressure 107/74 12/01/18 08:58 O2 Sat by Pulse Oximetry 87 12/01/18 08:58 Temperature 98.3 F 12/01/18 08:58 Pulse Rate 95 12/01/18 13:10 Respiratory Rate 18 12/01/18 12:05 Blood Pressure 107/74 12/01/18 08:58 O2 Sat by Pulse Oximetry 90 12/01/18 13:10 Oxygen Delivery Oxygen Delivery Nasal Cannula Shortness of Breath/Dyspnea - [facility] Narrative Medical decision making narrative: EKG was obtained that showed evidence of sinus rhythm 89 beats a minute, the patient does not appear to have any significant ST segment elevation or depression. IA and QT intervals are within normal limits. Interpreted by myself. Patient did have a concerning x-ray that showed possible infiltrate, CT scan was requested, patient to receive a CT scan that showed evidence of a multifocal infiltrate consistent with pneumonia. The patient was given vancomycin and Zosyn here in the emergency room, the patient did have a negative lactic acid, blood cultures have been obtained. The patient this point time has had increasing nasal cannula oxygen and given here in the emergency room. Patient at this point time has had stable blood pressure. The patient at this point time is going to be admitted secondary to her significant hypoxia with bilateral pneumonia. Patient admitted and will be admitted in stable condition to the floor. CRITICAL CARE TIME OF 35 MINUTES PERFORMING THIS INDIVIDUAL OUTSIDE OF SEPARATELY BILLABLE PROCEDURES. THIS INCLUDES BEDSIDE EVALUATION, INTERPRETATION OF EKG AND LAB TESTS AND CONSULTATIONS. Final impression 1. Health Care associated pneumonia 2. Acute on chronic respiratory failure with hypoxia - Lab Data Result diagrams: 12/01/18 09:17 12/01/18 09:17 Lab Results 12/01/18 12/01/18 12/01/18 Range/Units 09:17 09:17 09:17 WBC 6.3 (4.3-11.1) K/mcL RBC 3.16 L (3.82-4.97) M/mcL Hgb 9.2 L (11.5-15.4) g/dL Hct 29.4 L (35.3-44.9) % MCV 93.0 (83.0-100.0) fL MCH 29.1 (28.0-33.3) pg MCHC 31.3 L (31.6-35.5) g/dL RDW 21.2 H (11.5-14.5) % Plt Count 233 (140-400) K/mcL MPV 12.0 (9.4-12.4) fL Immature Gran % 0.2 (0-4) % Seg Neutrophils % 68.6 % Lymphocytes % 18.5 % Monocytes % 12.0 % Eosinophils % 0.5 % Basophils % 0.2 % Neutrophils # 4.3 (1.6-8.9) K/mcL Lymphocytes # 1.2 (0.6-4.6) K/mcL Monocytes # 0.8 (0.0-1.3) K/mcL Eosinophils # 0.0 (0.0-0.6) K/mcL Basophils # 0.0 (0.0-0.2) K/mcL Sodium 140 (136-145) mEq/L Potassium 3.8 (3.5-5.1) mEq/L Chloride 107 (98-107) mEq/L Carbon Dioxide 23 (23-29) mEq/L BUN 22 (8-23) mg/dL Creatinine 1.48 H (0.60-1.20) mg/dL Est GFR ( Amer) 41 L (> 60) Est GFR (Non-Af Amer) 34 L (> 60) BUN/Creatinine Ratio 15 (6-26) Glucose 106 H (70-105) mg/dL Calculated Osmolality 294 (280-300) Lactic Acid 0.8 (0.5-2.2) mmol/L Calcium 8.6 (8.6-10.3) mg/dL Troponin I < 0.03 (< 0.04) ng/mL B-Natriuretic Peptide (Less than 100) pg/mL 12/01/18 Range/Units 09:17 WBC (4.3-11.1) K/mcL RBC (3.82-4.97) M/mcL Hgb (11.5-15.4) g/dL Hct (35.3-44.9) % MCV (83.0-100.0) fL MCH (28.0-33.3) pg MCHC (31.6-35.5) g/dL RDW (11.5-14.5) % Plt Count (140-400) K/mcL MPV (9.4-12.4) fL Immature Gran % (0-4) % Seg Neutrophils % % Lymphocytes % % Monocytes % % Eosinophils % % Basophils % % Neutrophils # (1.6-8.9) K/mcL Lymphocytes # (0.6-4.6) K/mcL Monocytes # (0.0-1.3) K/mcL Eosinophils # (0.0-0.6) K/mcL Basophils # (0.0-0.2) K/mcL Sodium (136-145) mEq/L Potassium (3.5-5.1) mEq/L Chloride (98-107) mEq/L Carbon Dioxide (23-29) mEq/L BUN (8-23) mg/dL Creatinine (0.60-1.20) mg/dL Est GFR ( Amer) (> 60) Est GFR (Non-Af Amer) (> 60) BUN/Creatinine Ratio (6-26) Glucose (70-105) mg/dL Calculated Osmolality (280-300) Lactic Acid (0.5-2.2) mmol/L Calcium (8.6-10.3) mg/dL Troponin I (< 0.04) ng/mL B-Natriuretic Peptide 151 H (Less than 100) pg/mL
[2018-12-01] MEDS ORDERED: Ipratropium/Albuterol Neb 3 ML IH ONE ×2 (09:17)
[2018-12-01] MEDS ORDERED: methylPREDNISolone 125 MG/2 ML VIAL IVP ONE (09:17)
[2018-12-01 09:38] LABS: Basophils % 0.2 %; Eosinophils % 0.5 %; Hematocrit 29.4 % (35.3-44.9); Hemoglobin 9.2 g/dL (11.5-15.4); Immature Granulocytes % 0.2 % (0-4); Lymphocytes # 1.2 K/mcL (0.6-4.6); Lymphocytes % 18.5 %; Mean Corpuscular HGB Conc 31.3 g/dL (31.6-35.5); Mean Corpuscular Hemoglobin 29.1 pg (28.0-33.3); Monocytes # 0.8 K/mcL (0.0-1.3); Neutrophils # 4.3 K/mcL (1.6-8.9); Platelet Count 233 K/mcL (140-400); Red Blood Count 3.16 M/mcL (3.82-4.97); Red Cell Distribution Width 21.2 % (11.5-14.5); Segmented Neutrophils % 68.6 %; White Blood Count 6.3 K/mcL (4.3-11.1)
[2018-12-01] MEDS ORDERED: Isovue-370 500 ML BOTTLE IVP ONE (09:51)
[2018-12-01 09:54] LABS: BUN/Creatinine Ratio 15 (6-26); Blood Urea Nitrogen 22 mg/dL (8-23); Calcium 8.6 mg/dL (8.6-10.3); Carbon Dioxide 23 mEq/L (23-29); Chloride 107 mEq/L (98-107); Glucose 106 mg/dL (70-105); Osmolality,Calculated 294 (280-300); Potassium 3.8 mEq/L (3.5-5.1); Sodium 140 mEq/L (136-145); eGFR For African Americans 41 (> 60); eGFR For Non-African Americans 34 (> 60)
[2018-12-01 09:55] LABS: Troponin I < 0.03 ng/mL (< 0.04)
[2018-12-01] MEDS ORDERED: Piperacillin/Tazobactam 3.375 GM in 0.9 % Sodium Chloride Mini Bag 100 ML IVPB ONE (12:53)
[2018-12-01] MEDS ORDERED: *HR* HYDROcodone/Acet 5/325 mg TABLET PO PRN (15:25)
[2018-12-01] MEDS ORDERED: Naloxone 0.4 MG/ML INJ IVP PRN (15:25)
[2018-12-01] MEDS ORDERED: Ondansetron 4 MG/2 ML VIAL IVP PRN (15:25)
[2018-12-01] MEDS ORDERED: Acetaminophen 325 MG TABLET PO PRN (15:25)
--- NOTE | 2018-12-01 15:25 | Internal Med History&Physical ---
Date of Encounter: 12/01/18 Time of Encounter: 15:25 Internal Medicine - H&P: HPI Chief complaint: SOB History of present illness: Ms. Dahl is a 78 year old female with past medical history of Biclonal IgA kappa and IgG lambda multiple myeloma who is currently on Zometa q 3 months, Daratumumab with velcade and decadron 09/29/2018-11/18/3018, transitioned to daratumumab 12/01/2018 (on hold) and history of CVA, COPD,Generalized debility and Iron deficiency anemia who was sent from the oncology clinic for a concern of hypoxia and shortness of breath. Saturations upon arrival to the oncology office on 2 L of oxygen was 91%. Her oxygen ran out during her visit to the oncology and her saturation dropped to 79-81 %. The patient was evaluated by the ER staff and imaging studies was suggestive of Multifocal airspace consolidation within the right upper lobe, lingula, and bilateral lower lobes, most likely reflecting multifocal pneumonia, Bilateral lower lobe mucus plugging. The patient was admitted for further ventilation and management of multifocal pneumonia. Past Med Surg Social Fam HX - Past Medical History Medical history: arthritis, atrial fibrillation, cancer, COPD, CVA, dementia, GERD, hypertension, other Additional medical history: multiple myeloma. alzheimer's disease, whelan's esophagus, Psychiatric history: no psych history - Past Surgical History Surgical History: no surgical history - Social History Smoking Status: Former smoker Smokeless Tobacco Status: No Alcohol use: none Drug use: none - Family History Mother Living Status: Hx Family Cardiac Disorders: Yes Hx Family Endocrine Disorder: Yes (DM) Internal Medicine - H&P: Meds Montelukast [Singulair] 10 mg PO DAILY 02/16/15 [History] Omeprazole [PriLOSEC] 20 mg PO DAILY 02/20/15 [History] Aspirin Enteric Coated [Aspirin EC] 81 mg PO DAILY 04/02/15 [History] Carvedilol 3.125 mg PO BID #60 tablet 03/06/16 [Rx] Donepezil HCl [Aricept] 5 mg PO HS 07/24/16 [History] Pramipexole [Mirapex] 0.5 mg PO HS 01/19/17 [History] Mirtazapine [Remeron] 15 mg PO HS 11/11/17 [History] Acetaminophen [Extra Strength Non-Aspirin] 500 mg PO QID PRN 12/02/17 [History] Cyanocobalamin (Vitamin B-12) [Vitamin B12] 1,000 mcg PO DAILY 12/02/17 [ History] Carboxymethylcellulose Sodium [Refresh Tears] 15 ml OP BID 12/09/17 [History] Acyclovir [Zovirax] 400 mg PO BID #60 tablet 09/08/18 [Rx] Lisinopril 2.5 mg PO DAILY 09/08/18 [History] Loperamide [Imodium] 2 mg PO Q8H PRN 09/08/18 [History] Calcium Carbonate [Tums] 1,000 mg PO Q4HR PRN #30 tab.chew 09/29/18 [Rx] Acetaminophen [Tylenol] 650 mg PO QID 11/18/18 [History] Atorvastatin Calcium [Lipitor] 20 mg PO DAILY 12/01/18 [History] Calcium Carbonate [Tums] 1,000 mg PO Q4HR 12/01/18 [History] Flu Vac Hd (65Yr Up)Pf [Fluzone High-Dose Syr] 0.5 ml IM ONCE 12/01/18 [History] Guaifenesin [Cough Syrup] 100 mg PO Q4HR PRN 12/01/18 [History] HydrOXYzine 10 mg PO Q8HR PRN 12/01/18 [History] Mirabegron [Myrbetriq] 50 mg PO DAILY 12/01/18 [History] Mirtazapine [Remeron] 15 mg PO HS 12/01/18 [History] Ondansetron ODT [Zofran ODT] 4 mg PO Q6HR PRN 12/01/18 [History] Allergy/AdvReac Type Severity Reaction Status Date / Time No Known Allergies Allergy Verified 12/01/18 08:15 All Systems PM: A 10-system review of systems was performed and is negative for pertinent findings except as documented above in the HPI. - Constitutional Vitals: Temp Pulse Resp BP Pulse Ox 98.3 F 98 20 104/75 90 12/01/18 08:58 12/01/18 13:55 12/01/18 15:11 12/01/18 15:11 12/01/18 13:55 General appearance: Present: A&O X 3 Exam: ` - Head Head exam: Present: atraumatic, normocephalic - Neck Neck exam general surgery: Present: supple, trachea midline. Absent: lymphadenopathy - Respiratory Respiratory exam: Present: rhonchi, wheezes. Absent: accessory muscle use, rales - Cardiovascular Cardiovascular exam: Present: RRR, +S1, +S2. Absent: diastolic murmur, gallop, rubs, systolic murmur - GI/Abdominal GI/Abdominal exam: Present: normal bowel sounds, soft, no peritoneal signs. Absent: distended, tenderness - Extremities Exam Extremities exam: Present: warm, radial pulses palpable and symmetrical. Absent: calf tenderness, cyanotic, pedal edema Internal Med - H&P Results - Labs CBC & Chem 7: 12/01/18 09:17 12/01/18 09:17 Labs: Short CBC 12/01/18 Range/Units 09:17 WBC 6.3 (4.3-11.1) K/mcL Hgb 9.2 L (11.5-15.4) g/dL Hct 29.4 L (35.3-44.9) % Plt Count 233 (140-400) K/mcL Neutrophils # 4.3 (1.6-8.9) K/mcL BMP 12/01/18 09:17 Sodium 140 Potassium 3.8 Chloride 107 Carbon Dioxide 23 BUN 22 Creatinine 1.48 H Glucose 106 H Calcium 8.6 Cardiac Enzymes 12/01/18 Range/Units 09:17 Troponin I < 0.03 (< 0.04) ng/mL - Impressions ITS Impressions Chest X-Ray 12/01/18 08:56 IMPRESSION: 1. Developing fullness right hilum with right infrahilar airspace disease. Recommend CT with IV contrast. Correlation to exclude potential postobstructive etiology. D/ / 12/01/2018 09:47:40 Vern Rivera MD / daxa Interpreting Provider: Vern Rivera MD Chest CT 12/01/18 09:51 IMPRESSION: 1. Multifocal airspace consolidation within the right upper lobe, lingula, and bilateral lower lobes, most likely reflecting multifocal pneumonia, less likely aspiration. No definite central obstructing mass is identified. However, suggest appropriate clinical treatment, and short-term chest CT follow-up in 8-12 weeks to ensure resolution of these multifocal opacities. 2. No definite right hilar mass or lymphadenopathy within the limitations of a noncontrast study. 3. Chronic partial right middle lobe collapse. 4. Chronic emphysema. 5. Bilateral lower lobe mucus plugging. 6. Small bilateral pleural effusions. 7. Small chronic pericardial effusion. 8. 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 D/ / 12/01/2018 12:30:03 Keyur Rea MD / Kacie Persaud Interpreting Provider: Keyur Rea MD - Assessment and Plan (1) Pneumonia Current Visit: Yes Status: Acute Assessment and plan: ASSESSMENT: - SOB due to Pneumonia in the sitting of structural lung disease - Blood Cx - Antibiotics - CBCD, CMP in AM - Tylenol 650 mg PO q 4-6 hr PRN pain or fever - Heparin 5000 U SQ BID Qualifiers: Pneumonia type: due to unspecified organism Laterality: bilateral Qualified Code(s): J18.9 - Pneumonia, unspecified organism (2) COPD (chronic obstructive pulmonary disease) Current Visit: No Status: Chronic Assessment and plan: SOB due to COPF exacerbation caused by URTI (Pneumonia - infiltrate on CXR) PLAN: - Aerosols q 4 hr and PRN SOB - Solu-medrol 40 mg IV q 6 hr - O2 to keep SpO2 higher than 92% (SpO higher than 95% if CAD) - CBCD, BMP in AM - Sputum Gram stain, C+S - ABs Qualifiers: COPD type: emphysema Emphysema type: panlobular Qualified Code(s): J43.1 - Panlobular emphysema (3) Chronic kidney disease Current Visit: No Status: Chronic Assessment and plan: Creatinine is around baseline, we will continue to monitor renal function and renal dose medication as per current EGFR, avoid nephrotoxic meds. 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 who is currently on Zometa q 3 months, Daratumumab with velcade and decadron 09/29/2018-11/18/3018, transitioned to daratumumab 12/01/2018 which now on hold, patient is following with oncology as an outpatient Qualifiers: Multiple myeloma remission status: unspecified Qualified Code(s): C90.00 - Multiple myeloma not having achieved remission (5) Anemia Current Visit: No Status: Chronic Assessment and plan: Iron deficiency anemia, The patient is following with oncology and hematology as an outpatient Qualifiers: Anemia type: other cause Other causes of anemia: chronic disease, neoplastic Qualified Code(s): D63.0 - Anemia in neoplastic disease (6) Dementia Current Visit: No Status: Chronic Qualifiers: Dementia type: unspecified type Dementia behavioral disturbance: without behavioral disturbance Qualified Code(s): F03.90 - Unspecified dementia without behavioral disturbance (7) Osteoporosis Current Visit: No Status: Acute Qualifiers: Osteoporosis type: unspecified Qualified Code(s): M81.0 - Age-related osteoporosis without current pathological fracture (8) DVT prophylaxis Current Visit: Yes Status: Acute Assessment and plan: We will place SCDs - Time Spent With Patient Total time spent is greater than 50% in coordination of care (as documented) at patient's floor/unit and/or counseling patient:
[2018-12-01] MEDS ORDERED: GuaiFENesin Liq 200 MG/10 ML UDC PO PRN (15:29)
[2018-12-01] MEDS ORDERED: ACETAMINOPHEN 650 MG PO SCH (17:00)
[2018-12-01] MEDS: 0.9 % Sodium Chloride 1,000 ML IVC SCH (18:05)
[2018-12-01] MEDS ORDERED: Vancomycin (wt based) 1,000 MG VIAL IVPB SCH (19:00)
[2018-12-01] MEDS ORDERED: Mirtazapine 15 MG TABLET PO SCH (21:00)
[2018-12-01] MEDS: Acyclovir 200 MG CAPSULE PO SCH (22:31)
[2018-12-01] MEDS: Mirtazapine 15 MG TABLET PO SCH (22:31)
[2018-12-01] MEDS: Artificial Tears SOLN 15 ML BOTTLE OP SCH (22:35)
[2018-12-02] MEDS: Piperacillin/Tazobactam 3.375 GM in 0.9 % Sodium Chloride Mini Bag 100 ML IVPB SCH ×4 (00:24→23:31)
[2018-12-02] MEDS: *HR* Heparin 5,000 UNIT/ML VIAL SQ SCH ×2 (05:38→17:16)
[2018-12-02] MEDS ORDERED: MethylPREDNISolone 40 MG/ML VIAL IVP SCH (06:00)
[2018-12-02] MEDS: Ipratropium/Albuterol Neb 3 ML IH SCH ×4 (06:05→22:13)
[2018-12-02 08:39] LABS: Hematocrit 27.4 % (35.3-44.9); Hemoglobin 8.8 g/dL (11.5-15.4); Immature Granulocytes % 0.3 % (0-4); Lymphocytes # 0.4 K/mcL (0.6-4.6); Lymphocytes % 7.3 %; Mean Corpuscular HGB Conc 32.1 g/dL (31.6-35.5); Mean Corpuscular Volume 93.5 fL (83.0-100.0); Mean Platelet Volume 11.6 fL (9.4-12.4); Monocytes # 0.1 K/mcL (0.0-1.3); Neutrophils # 5.3 K/mcL (1.6-8.9); Platelet Count 199 K/mcL (140-400); Red Blood Count 2.93 M/mcL (3.82-4.97); Segmented Neutrophils % 90.4 %; White Blood Count 5.9 K/mcL (4.3-11.1)
[2018-12-02 08:45] LABS: INR 1.1; Prothrombin Time 12.2 Seconds (9.4-12.1)
[2018-12-02 08:48] LABS: Activated Partial Thrombo Time 32.3 Seconds (26.0-36.0)
[2018-12-02 08:58] LABS: Albumin 2.7 g/dL (3.5-5.7); Albumin/Globulin Ratio 0.9 (1.1-2.2); Bilirubin,Total 0.3 mg/dL (0.3-1.0); Calcium 7.8 mg/dL (8.6-10.3); Chol/HDL Ratio 2.7 (0-4.9); Globulin 2.9 g/dL (2.4-3.5); Phosphorous 2.8 mg/dL (2.7-4.5); Potassium 3.8 mEq/L (3.5-5.1); Total Protein 5.6 g/dL (6.4-8.9)
[2018-12-02] MEDS: 0.9 % Sodium Chloride 1,000 ML IVC SCH (09:47)
[2018-12-02] MEDS: Acyclovir 200 MG CAPSULE PO SCH ×2 (10:00→20:17)
[2018-12-02] MEDS: Aspirin Enteric Coated 81 MG Tablet PO SCH (10:01)
[2018-12-02] MEDS: Cyanocobalamin (B-12) 1,000 MCG TABLET PO SCH (10:01)
[2018-12-02] MEDS: Artificial Tears SOLN 15 ML BOTTLE OP SCH ×2 (10:02→20:20)
[2018-12-02] MEDS: Mirabegron [Myrbetriq] 50 MG PO SCH (10:03)
[2018-12-02] MEDS ORDERED: 0.9 % Sodium Chloride 1,000 ML IVC SCH (11:15)
[2018-12-02] MEDS: Acetaminophen 325 MG TABLET PO SCH ×3 (11:57→23:31)
--- NOTE | 2018-12-02 12:50 | Electrocardiograph Report ---
[place] [facility] Test Date: 2018-12-01 Pat Name: Nelly Dahl Department: [id number] Room: 2A63 Gender: F Registered Public Surveyor: : 1940 Requested By: [id number] Order Number: [id number] Reading MD: Woodrow Asher Measurements Intervals [place] Rate: 89 P: 27 CT: 168 QRS: -30 QRSD: 84 T: 45 QT: 361 QTc: 440 Interpretive Statements Sinus rhythm Abnormal R-wave progression, late transition Inferior infarct, old Electronically Signed On 12-02-2018 12:49:05 EDT by Woodrow Asher
[2018-12-02] MEDS ORDERED: Aminoglycoside Consult 1 EACH MC ONE (13:22)
--- NOTE | 2018-12-02 15:29 | Internal Med Progress Note ---
Hospitalist Progress Note - Encounter Date of Encounter: 12/02/18 Time of Encounter: 15:27 - Subjective Interval History: Patient seen and examined earlier today with son present at bedside. Pt is sitting in chair and saturating well on nasal cannula. Reports of feeling better compared to previous day. reports of not being on home oxygen and currently requiring O2 supplementation. Denies any chest pain, cough, abd pain,n/v, fever, or chills at this time. Ten point ROS is negative except as listed above - Exam Vitals: Temp Pulse Resp BP Pulse Ox 97.7 F 85 16 123/67 93 12/02/18 15:24 12/02/18 15:24 12/02/18 15:24 12/02/18 15:24 12/02/18 15:24 Exam: General: No acute distress, Frail appearing elderly female HEENT: EOMI, NC/AT, no scleral icterus Respiratory: coarse breath sounds, bibasilar rales, no wheezing Cardiovascular: Regular, Rate, Rhythm, No murmurs GI: Soft, Non tender, non distended, normal bowel sounds Ext: No edema, no tenderness, positive pulses Neuro: no focal deficits Rest of the clinical exam is noncontributory - Assessment and Plan (1) Chronic kidney disease Current Visit: No Status: Chronic (2) Dementia Current Visit: No Status: Chronic (3) Multiple myeloma Current Visit: Yes Status: Chronic (4) COPD (chronic obstructive pulmonary disease) Current Visit: No Status: Chronic (5) Osteoporosis Current Visit: No Status: Acute (6) Anemia Current Visit: No Status: Chronic (7) Pneumonia Current Visit: Yes Status: Acute (8) DVT prophylaxis Current Visit: Yes Status: Acute - Summary of Assessment and Plan Summary of Assessment and Plan: Patient is an 78y/o female with PMH of multiple myeloma, COPD, dementia who is admitted for acute respiratory distress. Assessment/Plan: 1. Acute respiratory distress with hypoxia likely secondary to PNA/COPD exacerbation continue broad spectrum IV abx f/u blood cultures f/u respiratory infection panel repeat CXR in am bronchodilator support as needed O2 supplementation as needed will closely monitor respiratory status 2. COPD exacerbation continue systemic steroids, decreased Solumedrol dose to 40mg IV q8h bronchodilator support O2 supplementation titrate off O2 support as tolerated to maintain O2 sat>92% if respiratory status does not improve, will consider pulmonology evaluation 3. CKD renal function at baseline continue to closely monitor 4. Chronic anemia H&H low but acceptable no acute bleeding reported at this time will closely monitor H&H 5. Hx of Dementia, Multiple myeloma: continue home medications DVT ppx: Heparin SQ Care plan discussed with patient/RN/family/pharmacist/case management - Time Spent with Patient Total time spent is greater than 50% in coordination of care (as documented) at patient's floor/unit and/or counseling patient: Internal Medicine: Result - Labs CBC & Chem 7: 12/02/18 08:21 12/02/18 08:21 Labs: Short CBC 12/02/18 Range/Units 08:21 WBC 5.9 (4.3-11.1) K/mcL Hgb 8.8 L (11.5-15.4) g/dL Hct 27.4 L (35.3-44.9) % Plt Count 199 (140-400) K/mcL Neutrophils # 5.3 (1.6-8.9) K/mcL BMP 12/02/18 08:21 Sodium 141 Potassium 3.8 Chloride 113 H Carbon Dioxide 22 L BUN 20 Creatinine 1.23 H Glucose 140 H Calcium 7.8 L Liver Function 12/02/18 Range/Units 08:21 Total Bilirubin 0.3 (0.3-1.0) mg/dL AST 10 L (13-39) Units/L ALT 7 (7-52) Units/L Alkaline Phosphatase 70 (34-104) Units/L Albumin 2.7 L (3.5-5.7) g/dL - ABG Interpretation ABG results: PT/INR, D-dimer PT 12.2 Seconds (9.4-12.1) H 12/02/18 08:21 Consult Discharge Plan - Plan (1) Chronic kidney disease Qualifiers: Chronic kidney disease stage: unspecified stage Qualified Code(s): N18.9 - Chronic kidney disease, unspecified (2) Dementia Qualifiers: Dementia type: unspecified type Dementia behavioral disturbance: without behavioral disturbance Qualified Code(s): F03.90 - Unspecified dementia without behavioral disturbance (3) Multiple myeloma Qualifiers: Multiple myeloma remission status: unspecified Qualified Code(s): C90.00 - Multiple myeloma not having achieved remission (4) COPD (chronic obstructive pulmonary disease) Qualifiers: COPD type: emphysema Emphysema type: panlobular Qualified Code(s): J43.1 - Panlobular emphysema (5) Osteoporosis Qualifiers: Osteoporosis type: unspecified Qualified Code(s): M81.0 - Age-related osteoporosis without current pathological fracture (6) Anemia Qualifiers: Anemia type: other cause Other causes of anemia: chronic disease, neoplastic Qualified Code(s): D63.0 - Anemia in neoplastic disease (7) Pneumonia Qualifiers: Pneumonia type: due to unspecified organism Laterality: bilateral Qualified Code(s): J18.9 - Pneumonia, unspecified organism
[2018-12-02] MEDS: MethylPREDNISolone 40 MG/ML VIAL IVP SCH ×2 (15:56→23:31)
[2018-12-02 17:20] LABS: Adenovirus Not Detected (Not Detect); Bordetella Pertussis Not Detected (Not Detect); Chlamydophila pneumoniae Not Detected (Not Detect); Coronavirus 229E Not Detected (Not Detect); Coronavirus HKU1 Not Detected (Not Detect); Coronavirus NL63 Not Detected (Not Detect); Coronavirus OC43 Not Detected (Not Detect); Human Metapneumovirus Not Detected (Not Detect); Human Rhinovirus/Enterovirus Not Detected (Not Detect); Influenza A Subtype 2009 H1 Not Detected (Not Detect); Influenza A Untypeable Not Detected (Not Detect); Influenza B Not Detected (Not Detect); Mycoplasma pneumoniae Not Detected (Not Detect); Parainfluenza Virus 1 Not Detected (Not Detect); Parainfluenza Virus 2 Not Detected (Not Detect); Parainfluenza Virus 3 Not Detected (Not Detect); Parainfluenza Virus 4 Not Detected (Not Detect); Respiratory Syncytial Virus Not Detected (Not Detect)
[2018-12-02] MEDS: Mirtazapine 15 MG TABLET PO SCH (20:17)
[2018-12-03] MEDS: Ipratropium/Albuterol Neb 3 ML IH SCH ×4 (03:56→22:19)
[2018-12-03] MEDS: Acetaminophen 325 MG TABLET PO SCH ×4 (05:43→23:38)
[2018-12-03] MEDS: *HR* Heparin 5,000 UNIT/ML VIAL SQ SCH ×2 (05:44→18:07)
[2018-12-03 08:41] LABS: Phosphorous 2.4 mg/dL (2.7-4.5); Potassium 3.5 mEq/L (3.5-5.1)
[2018-12-03 08:43] LABS: Basophils % 0.1 %; Hematocrit 28.4 % (35.3-44.9); Hemoglobin 8.6 g/dL (11.5-15.4); Immature Granulocytes % 0.8 % (0-4); Lymphocytes # 0.3 K/mcL (0.6-4.6); Lymphocytes % 2.7 %; Mean Corpuscular HGB Conc 30.3 g/dL (31.6-35.5); Mean Corpuscular Hemoglobin 29.5 pg (28.0-33.3); Mean Corpuscular Volume 97.3 fL (83.0-100.0); Mean Platelet Volume 11.8 fL (9.4-12.4); Monocytes # 0.2 K/mcL (0.0-1.3); Monocytes % 1.2 %; Neutrophils # 11.8 K/mcL (1.6-8.9); Platelet Count 217 K/mcL (140-400); Red Blood Count 2.92 M/mcL (3.82-4.97); Red Cell Distribution Width 21.4 % (11.5-14.5); Segmented Neutrophils % 95.2 %
[2018-12-03 08:54] LABS: White Blood Count 12.4 K/mcL (4.3-11.1)
[2018-12-03] MEDS: MethylPREDNISolone 40 MG/ML VIAL IVP SCH ×2 (09:47→18:06)
[2018-12-03] MEDS: Cyanocobalamin (B-12) 1,000 MCG TABLET PO SCH (09:48)
[2018-12-03] MEDS: Artificial Tears SOLN 15 ML BOTTLE OP SCH ×2 (09:48→20:22)
[2018-12-03] MEDS: Acyclovir 200 MG CAPSULE PO SCH ×2 (09:48→20:21)
[2018-12-03] MEDS: Piperacillin/Tazobactam 3.375 GM in 0.9 % Sodium Chloride Mini Bag 100 ML IVPB SCH ×2 (09:48→18:07)
[2018-12-03] MEDS: Mirabegron [Myrbetriq] 50 MG PO SCH (09:48)
[2018-12-03] MEDS: Aspirin Enteric Coated 81 MG Tablet PO SCH (09:48)
[2018-12-03] MEDS ORDERED: Furosemide 20 MG/2 ML VIAL IVP ONE (12:03)
--- NOTE | 2018-12-03 12:08 | Internal Med Progress Note ---
Hospitalist Progress Note - Encounter Date of Encounter: 12/03/18 Time of Encounter: 12:06 - Subjective Interval History: Patient seen and examined earlier today with son present at bedside. Patient resting in chair and states she feels better compared to previous day. Remains O2 dependent and was noted to desaturate to low 80s as she was being titrated off O2 last night. She denies any cough, chest pain, fever, or chills. Ten point ROS is negative except as listed above - Exam Vitals: Temp Pulse Resp BP Pulse Ox 97.5 F L 87 20 142/72 93 12/03/18 11:17 12/03/18 11:17 12/03/18 11:17 12/03/18 11:17 12/03/18 11:17 Exam: General: No acute distress, Frail appearing elderly female HEENT: EOMI, NC/AT, no scleral icterus Respiratory: coarse breath sounds, diffuse rales, no wheezing Cardiovascular: Regular, Rate, Rhythm, No murmurs GI: Soft, Non tender, non distended, normal bowel sounds Ext: No edema, no tenderness, positive pulses Neuro: no focal deficits Rest of the clinical exam is noncontributory - Assessment and Plan (1) Chronic kidney disease Current Visit: No Status: Chronic (2) Dementia Current Visit: No Status: Chronic (3) Multiple myeloma Current Visit: Yes Status: Chronic (4) COPD (chronic obstructive pulmonary disease) Current Visit: No Status: Chronic (5) Osteoporosis Current Visit: No Status: Acute (6) Anemia Current Visit: No Status: Chronic (7) Pneumonia Current Visit: Yes Status: Acute (8) DVT prophylaxis Current Visit: Yes Status: Acute - Summary of Assessment and Plan Summary of Assessment and Plan: Patient is an 78y/o female with PMH of multiple myeloma, COPD, dementia who is admitted for acute respiratory distress. Assessment/Plan: 1. Acute respiratory distress with hypoxia likely secondary to PNA/COPD exacerbation continue broad spectrum IV abx f/u blood cultures, prelim reporting no growth thus far respiratory infection panel: negative CXR reviewed, will administer one time dose of Lasix 20mg IV now bronchodilator support as needed O2 supplementation as needed will closely monitor respiratory status 2. COPD exacerbation continue systemic steroids, decreased Solumedrol dose to 40mg IV q12h bronchodilator support O2 supplementation titrate off O2 support as tolerated to maintain O2 sat>92% 3. CKD renal function at baseline continue to closely monitor 4. Chronic anemia H&H low but acceptable no acute bleeding reported at this time will closely monitor H&H 5. Hx of Dementia, Multiple myeloma: continue home medications DVT ppx: Heparin SQ Care plan discussed with patient/RN/family/pharmacist/case management - Time Spent with Patient Total time spent is greater than 50% in coordination of care (as documented) at patient's floor/unit and/or counseling patient: Internal Medicine: Result - Labs CBC & Chem 7: 12/03/18 07:21 12/03/18 07:21 Labs: Short CBC 12/03/18 Range/Units 07:21 WBC 12.4 H D (4.3-11.1) K/mcL Hgb 8.6 L (11.5-15.4) g/dL Hct 28.4 L (35.3-44.9) % Plt Count 217 (140-400) K/mcL Neutrophils # 11.8 H (1.6-8.9) K/mcL BMP 12/03/18 07:21 Sodium 146 H Potassium 3.5 Chloride 113 H Carbon Dioxide 23 BUN 24 H Creatinine 1.48 H Glucose 175 H Calcium 8.0 L - ABG Interpretation ABG results: PT/INR, D-dimer PT 12.2 Seconds (9.4-12.1) H 12/02/18 08:21 - Impressions Impressions Chest CT 12/01/18 09:51 IMPRESSION: 1. Multifocal airspace consolidation within the right upper lobe, lingula, and bilateral lower lobes, most likely reflecting multifocal pneumonia, less likely aspiration. No definite central obstructing mass is identified. However, suggest appropriate clinical treatment, and short-term chest CT follow-up in 8-12 weeks to ensure resolution of these multifocal opacities. 2. No definite right hilar mass or lymphadenopathy within the limitations of a noncontrast study. 3. Chronic partial right middle lobe collapse. 4. Chronic emphysema. 5. Bilateral lower lobe mucus plugging. 6. Small bilateral pleural effusions. 7. Small chronic pericardial effusion. 8. 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 D/ / 12/01/2018 12:30:03 Keyur Rea MD / Kacie Persaud Interpreting Provider: Keyur Rea MD Chest X-Ray 12/03/18 07:00 IMPRESSION: 1. Cardiomegaly with pulmonary vascular congestion and bilateral pleural effusions with bibasilar atelectasis 2. Stable aneurysm of the aortic arch D/ / Stan Aviles MD / Stan Aviles MD Interpreting Provider: Stan Aviles MD Consult Discharge Plan - Plan Referrals: NONE,PCP [Primary Care Provider] - (1) Chronic kidney disease Qualifiers: Chronic kidney disease stage: unspecified stage Qualified Code(s): N18.9 - Chronic kidney disease, unspecified (2) Dementia Qualifiers: Dementia type: unspecified type Dementia behavioral disturbance: without behavioral disturbance Qualified Code(s): F03.90 - Unspecified dementia without behavioral disturbance (3) Multiple myeloma Qualifiers: Multiple myeloma remission status: unspecified Qualified Code(s): C90.00 - Multiple myeloma not having achieved remission (4) COPD (chronic obstructive pulmonary disease) Qualifiers: COPD type: emphysema Emphysema type: panlobular Qualified Code(s): J43.1 - Panlobular emphysema (5) Osteoporosis Qualifiers: Osteoporosis type: unspecified Qualified Code(s): M81.0 - Age-related osteoporosis without current pathological fracture (6) Anemia Qualifiers: Anemia type: other cause Other causes of anemia: chronic disease, neoplastic Qualified Code(s): D63.0 - Anemia in neoplastic disease (7) Pneumonia Qualifiers: Pneumonia type: due to unspecified organism Laterality: bilateral Qualified Code(s): J18.9 - Pneumonia, unspecified organism
[2018-12-03] MEDS: Mirtazapine 15 MG TABLET PO SCH (20:22)
[2018-12-04] MEDS: Piperacillin/Tazobactam 3.375 GM in 0.9 % Sodium Chloride Mini Bag 100 ML IVPB SCH ×4 (00:22→23:43)
[2018-12-04 03:45] LABS: Hematocrit 28.6 % (35.3-44.9); Hemoglobin 8.8 g/dL (11.5-15.4); Immature Granulocytes % 0.9 % (0-4); Lymphocytes # 0.3 K/mcL (0.6-4.6); Lymphocytes % 3.1 %; Mean Corpuscular HGB Conc 30.8 g/dL (31.6-35.5); Mean Corpuscular Hemoglobin 29.3 pg (28.0-33.3); Mean Corpuscular Volume 95.3 fL (83.0-100.0); Mean Platelet Volume 11.6 fL (9.4-12.4); Monocytes # 0.2 K/mcL (0.0-1.3); Monocytes % 2.1 %; Neutrophils # 10.2 K/mcL (1.6-8.9); Platelet Count 200 K/mcL (140-400); Red Cell Distribution Width 21.2 % (11.5-14.5); Segmented Neutrophils % 93.9 %; White Blood Count 10.8 K/mcL (4.3-11.1)
[2018-12-04 04:05] LABS: Calcium 7.4 mg/dL (8.6-10.3); Magnesium 1.8 mg/dL (1.6-2.6); Phosphorous 2.8 mg/dL (2.7-4.5); Potassium 3.4 mEq/L (3.5-5.1)
[2018-12-04] MEDS: Ipratropium/Albuterol Neb 3 ML IH SCH ×4 (04:29→23:11)
[2018-12-04] MEDS: *HR* Heparin 5,000 UNIT/ML VIAL SQ SCH ×2 (06:01→17:58)
[2018-12-04] MEDS: Acetaminophen 325 MG TABLET PO SCH ×4 (06:01→23:43)
[2018-12-04] MEDS: MethylPREDNISolone 40 MG/ML VIAL IVP SCH ×2 (06:01→17:58)
[2018-12-04] MEDS: Mirabegron [Myrbetriq] 50 MG PO SCH (09:09)
[2018-12-04] MEDS: Aspirin Enteric Coated 81 MG Tablet PO SCH (09:09)
[2018-12-04] MEDS: Artificial Tears SOLN 15 ML BOTTLE OP SCH ×2 (09:09→19:23)
[2018-12-04] MEDS: Cyanocobalamin (B-12) 1,000 MCG TABLET PO SCH (09:09)
[2018-12-04] MEDS: Acyclovir 200 MG CAPSULE PO SCH ×2 (09:09→19:24)
[2018-12-04] MEDS ORDERED: Furosemide 20 MG/2 ML VIAL IVP ONE (12:46)
--- NOTE | 2018-12-04 13:05 | Internal Med Progress Note ---
Hospitalist Progress Note - Encounter Date of Encounter: 12/04/18 Time of Encounter: 12:53 - Subjective Interval History: Patient seen and examined earlier this morning. Resting in chair and currently saturating well on room air. States she feels better compared to the previous day. RN reported that patient was noted to have one episode of loose stools this morning. Patient denies any abd pain,n/v, fever, or chills. Ten point ROS is negative except as listed in the HPI - Exam Vitals: Temp Pulse Resp BP Pulse Ox 97.7 F 76 18 117/54 90 12/04/18 11:29 12/04/18 11:29 12/04/18 11:29 12/04/18 11:29 12/04/18 11:29 Exam: General: No acute distress, Frail appearing elderly female HEENT: EOMI, NC/AT, no scleral icterus Respiratory: scattered rales, equal air entry bilaterally, no wheezing Cardiovascular: Regular, Rate, Rhythm, No murmurs GI: Soft, Non tender, non distended, normal bowel sounds Ext: No edema, no tenderness, positive pulses Neuro: no focal deficits Rest of the clinical exam is noncontributory - Assessment and Plan (1) Chronic kidney disease Current Visit: No Status: Chronic (2) Dementia Current Visit: No Status: Chronic (3) Multiple myeloma Current Visit: Yes Status: Chronic (4) COPD (chronic obstructive pulmonary disease) Current Visit: No Status: Chronic (5) Osteoporosis Current Visit: No Status: Acute (6) Anemia Current Visit: No Status: Chronic (7) Pneumonia Current Visit: Yes Status: Acute (8) DVT prophylaxis Current Visit: Yes Status: Acute - Summary of Assessment and Plan Summary of Assessment and Plan: Patient is an 78y/o female with PMH of multiple myeloma, COPD, dementia who is admitted for acute respiratory distress. Assessment/Plan: 1. Acute respiratory distress with hypoxia likely secondary to PNA/COPD exacerbation continue broad spectrum IV abx f/u blood cultures, prelim reporting no growth thus far respiratory infection panel: negative CXR reviewed will administer another dose of Lasix 20mg IV at this time bronchodilator support as needed O2 supplementation as needed will closely monitor respiratory status 2. COPD exacerbation continue systemic steroids, Solumedrol dose to 40mg IV q12h. Will d/c Solumedrol after tonight's dose and start Prednisone 40mg PO qdaily bronchodilator support O2 supplementation titrate off O2 support as tolerated to maintain O2 sat>92% 3. CKD renal function at baseline continue to closely monitor 4. Chronic anemia H&H low but acceptable no acute bleeding reported at this time will closely monitor H&H 5. Hx of Dementia, Multiple myeloma: continue home medications 6. Hypokalemia: K supplemented continue to monitor electrolytes and replace as needed DVT ppx: Heparin SQ Care plan discussed with patient/RN/family - Time Spent with Patient Total time spent is greater than 50% in coordination of care (as documented) at patient's floor/unit and/or counseling patient: Internal Medicine: Result - Labs CBC & Chem 7: 12/04/18 02:44 12/04/18 02:44 Labs: Short CBC 12/04/18 Range/Units 02:44 WBC 10.8 (4.3-11.1) K/mcL Hgb 8.8 L (11.5-15.4) g/dL Hct 28.6 L (35.3-44.9) % Plt Count 200 (140-400) K/mcL Neutrophils # 10.2 H (1.6-8.9) K/mcL BMP 12/04/18 02:44 Sodium 145 Potassium 3.4 L Chloride 111 H Carbon Dioxide 25 BUN 31 H Creatinine 1.45 H Glucose 150 H Calcium 7.4 L - ABG Interpretation ABG results: PT/INR, D-dimer PT 12.2 Seconds (9.4-12.1) H 12/02/18 08:21 Consult Discharge Plan - Plan Referrals: NONE,PCP [Primary Care Provider] - (1) Chronic kidney disease Qualifiers: Chronic kidney disease stage: unspecified stage Qualified Code(s): N18.9 - Chronic kidney disease, unspecified (2) Dementia Qualifiers: Dementia type: unspecified type Dementia behavioral disturbance: without behavioral disturbance Qualified Code(s): F03.90 - Unspecified dementia without behavioral disturbance (3) Multiple myeloma Qualifiers: Multiple myeloma remission status: unspecified Qualified Code(s): C90.00 - Multiple myeloma not having achieved remission (4) COPD (chronic obstructive pulmonary disease) Qualifiers: COPD type: emphysema Emphysema type: panlobular Qualified Code(s): J43.1 - Panlobular emphysema (5) Osteoporosis Qualifiers: Osteoporosis type: unspecified Qualified Code(s): M81.0 - Age-related osteoporosis without current pathological fracture (6) Anemia Qualifiers: Anemia type: other cause Other causes of anemia: chronic disease, neoplastic Qualified Code(s): D63.0 - Anemia in neoplastic disease (7) Pneumonia Qualifiers: Pneumonia type: due to unspecified organism Laterality: bilateral Qualified Code(s): J18.9 - Pneumonia, unspecified organism
[2018-12-04] MEDS: Mirtazapine 15 MG TABLET PO SCH (19:24)
[2018-12-05 03:03] LABS: Hematocrit 25.8 % (35.3-44.9); Hemoglobin 8.1 g/dL (11.5-15.4); Lymphocytes # 0.4 K/mcL (0.6-4.6); Lymphocytes % 5.7 %; Mean Corpuscular HGB Conc 31.4 g/dL (31.6-35.5); Mean Corpuscular Hemoglobin 29.3 pg (28.0-33.3); Mean Corpuscular Volume 93.5 fL (83.0-100.0); Mean Platelet Volume 11.6 fL (9.4-12.4); Monocytes # 0.2 K/mcL (0.0-1.3); Monocytes % 2.6 %; Neutrophils # 6.6 K/mcL (1.6-8.9); Nucleated Red Blood Cells 0.3 /100 WBC (0); Platelet Count 192 K/mcL (140-400); Red Blood Count 2.76 M/mcL (3.82-4.97); Red Cell Distribution Width 21.2 % (11.5-14.5); Segmented Neutrophils % 90.7 %; White Blood Count 7.3 K/mcL (4.3-11.1)
[2018-12-05 03:16] LABS: Calcium 7.1 mg/dL (8.6-10.3); Magnesium 1.7 mg/dL (1.6-2.6); Phosphorous 2.3 mg/dL (2.7-4.5); Potassium 3.6 mEq/L (3.5-5.1)
[2018-12-05] MEDS: Ipratropium/Albuterol Neb 3 ML IH SCH ×4 (04:30→22:39)
[2018-12-05] MEDS: Acetaminophen 325 MG TABLET PO SCH ×3 (05:21→17:45)
[2018-12-05] MEDS: *HR* Heparin 5,000 UNIT/ML VIAL SQ SCH ×2 (05:22→17:44)
[2018-12-05] MEDS: Aspirin Enteric Coated 81 MG Tablet PO SCH (07:29)
[2018-12-05] MEDS: predniSONE 20 MG TABLET PO SCH (07:29)
[2018-12-05] MEDS: Acyclovir 200 MG CAPSULE PO SCH ×2 (07:29→19:18)
[2018-12-05] MEDS: Cyanocobalamin (B-12) 1,000 MCG TABLET PO SCH (07:29)
[2018-12-05] MEDS: Piperacillin/Tazobactam 3.375 GM in 0.9 % Sodium Chloride Mini Bag 100 ML IVPB SCH ×2 (07:30→17:44)
[2018-12-05] MEDS: Mirabegron [Myrbetriq] 50 MG PO SCH (07:31)
[2018-12-05] MEDS: Artificial Tears SOLN 15 ML BOTTLE OP SCH ×2 (07:31→19:19)
--- NOTE | 2018-12-05 11:55 | Internal Med Progress Note ---
Hospitalist Progress Note - Encounter Date of Encounter: 12/05/18 Time of Encounter: 11:53 - Subjective Interval History: Patient seen and examined earlier this morning with RN Sitting in chair and saturating well on room air. Reports of feeling better compared to previous day. Denies any sob, chest pain, fever, or chills. Tentative d/c to NH in am Ten point ROS is negative except as listed above - Exam Vitals: Temp Pulse Resp BP Pulse Ox 97.8 F 75 14 126/77 96 12/05/18 10:52 12/05/18 10:52 12/05/18 10:52 12/05/18 10:52 12/05/18 10:52 Exam: General: No acute distress, Frail appearing elderly female HEENT: EOMI, NC/AT, no scleral icterus Respiratory: No rales, equal air entry bilaterally, no wheezing Cardiovascular: Regular, Rate, Rhythm, No murmurs GI: Soft, Non tender, non distended, normal bowel sounds Ext: No edema, no tenderness, positive pulses Neuro: no focal deficits Rest of the clinical exam is noncontributory - Assessment and Plan (1) Chronic kidney disease Current Visit: No Status: Chronic (2) Dementia Current Visit: No Status: Chronic (3) Multiple myeloma Current Visit: Yes Status: Chronic (4) COPD (chronic obstructive pulmonary disease) Current Visit: No Status: Chronic (5) Osteoporosis Current Visit: No Status: Acute (6) Anemia Current Visit: No Status: Chronic (7) Pneumonia Current Visit: Yes Status: Acute (8) DVT prophylaxis Current Visit: Yes Status: Acute - Summary of Assessment and Plan Summary of Assessment and Plan: Patient is an 78y/o female with PMH of multiple myeloma, COPD, dementia who is admitted for acute respiratory distress. Assessment/Plan: 1. Acute respiratory distress with hypoxia likely secondary to PNA/COPD exacerbation continue broad spectrum IV abx, will de-escalate to PO abx on discharge respiratory infection panel: negative CXR reviewed bronchodilator support as needed O2 supplementation as needed will closely monitor respiratory status 2. COPD exacerbation continue systemic steroids, started Prednisone 40mg PO qdaily today (day 15) bronchodilator support O2 supplementation titrate off O2 support as tolerated to maintain O2 sat>92% 3. CKD renal function at baseline continue to closely monitor 4. Chronic anemia H&H low but acceptable no acute bleeding reported at this time will closely monitor H&H 5. Hx of Dementia, Multiple myeloma: continue home medications 6. Hypokalemia: resolved continue to monitor electrolytes and replace as needed DVT ppx: Heparin SQ Care plan discussed with patient/RN - Time Spent with Patient Total time spent is greater than 50% in coordination of care (as documented) at patient's floor/unit and/or counseling patient: Internal Medicine: Result - Labs CBC & Chem 7: 12/05/18 02:07 12/05/18 02:07 Labs: Short CBC 12/05/18 Range/Units 02:07 WBC 7.3 (4.3-11.1) K/mcL Hgb 8.1 L (11.5-15.4) g/dL Hct 25.8 L (35.3-44.9) % Plt Count 192 (140-400) K/mcL Neutrophils # 6.6 (1.6-8.9) K/mcL BMP 12/05/18 02:07 Sodium 144 Potassium 3.6 Chloride 109 H Carbon Dioxide 24 BUN 32 H Creatinine 1.35 H Glucose 165 H Calcium 7.1 L - ABG Interpretation ABG results: PT/INR, D-dimer PT 12.2 Seconds (9.4-12.1) H 12/02/18 08:21 Consult Discharge Plan - Plan Referrals: NONE,PCP [Primary Care Provider] - (1) Chronic kidney disease Qualifiers: Chronic kidney disease stage: unspecified stage Qualified Code(s): N18.9 - Chronic kidney disease, unspecified (2) Dementia Qualifiers: Dementia type: unspecified type Dementia behavioral disturbance: without behavioral disturbance Qualified Code(s): F03.90 - Unspecified dementia without behavioral disturbance (3) Multiple myeloma Qualifiers: Multiple myeloma remission status: unspecified Qualified Code(s): C90.00 - Multiple myeloma not having achieved remission (4) COPD (chronic obstructive pulmonary disease) Qualifiers: COPD type: emphysema Emphysema type: panlobular Qualified Code(s): J43.1 - Panlobular emphysema (5) Osteoporosis Qualifiers: Osteoporosis type: unspecified Qualified Code(s): M81.0 - Age-related osteoporosis without current pathological fracture (6) Anemia Qualifiers: Anemia type: other cause Other causes of anemia: chronic disease, neoplastic Qualified Code(s): D63.0 - Anemia in neoplastic disease (7) Pneumonia Qualifiers: Pneumonia type: due to unspecified organism Laterality: bilateral Qualified Code(s): J18.9 - Pneumonia, unspecified organism
[2018-12-05] MEDS: Mirtazapine 15 MG TABLET PO SCH (19:18)
[2018-12-06] MEDS: Piperacillin/Tazobactam 3.375 GM in 0.9 % Sodium Chloride Mini Bag 100 ML IVPB SCH ×2 (00:01→09:54)
[2018-12-06] MEDS: Ipratropium/Albuterol Neb 3 ML IH SCH ×2 (04:37→10:42)
[2018-12-06 06:00] LABS: Hematocrit 25.5 % (35.3-44.9); Hemoglobin 8.1 g/dL (11.5-15.4); Immature Granulocytes % 1.6 % (0-4); Lymphocytes # 0.6 K/mcL (0.6-4.6); Lymphocytes % 8.3 %; Mean Corpuscular HGB Conc 31.8 g/dL (31.6-35.5); Mean Corpuscular Hemoglobin 29.6 pg (28.0-33.3); Mean Corpuscular Volume 93.1 fL (83.0-100.0); Monocytes # 0.3 K/mcL (0.0-1.3); Neutrophils # 5.8 K/mcL (1.6-8.9); Nucleated Red Blood Cells 0.4 /100 WBC (0); Platelet Count 178 K/mcL (140-400); Red Blood Count 2.74 M/mcL (3.82-4.97); Red Cell Distribution Width 21.2 % (11.5-14.5); Segmented Neutrophils % 85.1 %; White Blood Count 6.9 K/mcL (4.3-11.1)
[2018-12-06] MEDS: Acetaminophen 325 MG TABLET PO SCH ×3 (06:02→11:32)
[2018-12-06] MEDS: *HR* Heparin 5,000 UNIT/ML VIAL SQ SCH (06:02)
[2018-12-06 06:22] LABS: Calcium 7.6 mg/dL (8.6-10.3); Phosphorous 2.3 mg/dL (2.7-4.5); Potassium 3.8 mEq/L (3.5-5.1)
[2018-12-06] MEDS: Acyclovir 200 MG CAPSULE PO SCH (09:53)
[2018-12-06] MEDS: Cyanocobalamin (B-12) 1,000 MCG TABLET PO SCH (09:53)
[2018-12-06] MEDS: predniSONE 20 MG TABLET PO SCH (09:53)
[2018-12-06] MEDS: Aspirin Enteric Coated 81 MG Tablet PO SCH (09:53)
[2018-12-06] MEDS: Artificial Tears SOLN 15 ML BOTTLE OP SCH (09:54)
[2018-12-06] MEDS ORDERED: levoFLOXacin 750 MG TABLET PO SCH (10:15)
--- NOTE | 2018-12-06 10:48 | Physician Discharge Referral ---
ExtendedCare Referral Info Transfer To: [facility] Provider in Charge after Transfer: PCP Institutional Level of Care: Skilled - Diagnosis (1) Acute chronic obstructive pulmonary disease with respiratory distress Priority: Primary Status: Resolved (2) Chronic kidney disease Priority: Secondary Status: Chronic (3) Dementia Priority: Secondary Status: Chronic (4) Multiple myeloma Priority: Secondary Status: Chronic (5) COPD (chronic obstructive pulmonary disease) Priority: Primary Status: Chronic (6) Osteoporosis Priority: Secondary Status: Acute (7) Anemia Priority: Secondary Status: Chronic (8) Pneumonia Priority: Primary Status: Acute (9) DVT prophylaxis Priority: Secondary Status: Acute (10) Hypokalemia Priority: Secondary Status: Resolved - Transfer Medications Home Medications: Aspirin Enteric Coated [Aspirin EC] 81 mg PO DAILY 04/02/15 [History] Carvedilol 3.125 mg PO BID #60 tablet 03/06/16 [Rx] Donepezil HCl [Aricept] 5 mg PO HS 07/24/16 [History] Pramipexole [Mirapex] 0.5 mg PO HS 01/19/17 [History] Acetaminophen [Extra Strength Non-Aspirin] 500 mg PO QID PRN 12/02/17 [History] Cyanocobalamin (Vitamin B-12) [Vitamin B12] 1,000 mcg PO DAILY 12/02/17 [History] Carboxymethylcellulose Sodium [Refresh Tears] 1 drop BOTH EYES BID 12/09/17 [History] Acyclovir [Zovirax] 400 mg PO BID #60 tablet 09/08/18 [Rx] Lisinopril 2.5 mg PO DAILY 09/08/18 [History] Loperamide [Imodium] 2 mg PO Q8H PRN 09/08/18 [History] Calcium Carbonate [Tums] 1,000 mg PO Q4HR PRN #30 tab.chew 09/29/18 [Rx] Acetaminophen [Tylenol] 650 mg PO QID 11/18/18 [History] Atorvastatin Calcium [Lipitor] 20 mg PO DAILY 12/01/18 [History] Calcium Carbonate [Tums] 1,000 mg PO Q4HR 12/01/18 [History] Guaifenesin [Cough Syrup] 100 mg PO Q4HR PRN 12/01/18 [History] HydrOXYzine 10 mg PO Q8HR PRN 12/01/18 [History] Mirabegron [Myrbetriq] 50 mg PO DAILY 12/01/18 [History] Mirtazapine [Remeron] 15 mg PO HS 12/01/18 [History] Ondansetron ODT [Zofran ODT] 4 mg PO Q6HR PRN 12/01/18 [History] Montelukast [Singulair] 10 mg PO HS 12/02/18 [History] Omeprazole [PriLOSEC] 20 mg PO DAILY 12/02/18 [History] Ipratropium/Albuterol Neb [Duoneb] 3 ml IH QIDR PRN inhsol 12/06/18 [Rx] levoFLOXacin [Levaquin] 750 mg PO DAILY #1 tablet 12/06/18 [Rx] predniSONE [PredniSONE] 40 mg PO DAILY #3 tablet 12/06/18 [Rx] Allergies/Adverse Reactions: Allergy/AdvReac Type Severity Reaction Status Date / Time No Known Allergies Allergy Verified 12/01/18 08:15 - Respiratory Orders Smoking Cessation: Smoking cessation has been advised. For more information, call the [place] Tobacco Quit Line at 9-711-IFFJ-NOW. CERTIFICATION: I certify that the transfer of the above named patient to an Extended Care Facility is necessary for the continuing treatment of the diagnosis listed. The above information is true and accurate reflection of patient's current condition. Confidential - Redisclosure prohibited without a patient's written consent.
--- NOTE | 2018-12-06 10:53 | Discharge Summary ---
- NOTES TO OUTPATIENT PROVIDER Notes to Outpatient Provider: Patient admitted for acute respiratory distress with hypoxia secondary to COPD exacerbation and PNA. Treated with IV abx and steroids. Being discharged on Oral Levaquin and Predisone. Please closely monitor respiratory status. Orders not resulted at time of discharge: Pending orders 12/01/18 18:34 Culture,Sputum with Gram Stain [RM] Routine Date of Encounter: 12/06/18 Time of Encounter: 10:49 - Discharge Diagnosis (1) Acute chronic obstructive pulmonary disease with respiratory distress Priority: Primary Status: Resolved (2) Chronic kidney disease Priority: Secondary Status: Chronic Qualifiers: Chronic kidney disease stage: unspecified stage Qualified Code(s): N18.9 - Chronic kidney disease, unspecified (3) Dementia Priority: Secondary Status: Chronic Qualifiers: Dementia type: unspecified type Dementia behavioral disturbance: without behavioral disturbance Qualified Code(s): F03.90 - Unspecified dementia without behavioral disturbance (4) Multiple myeloma Priority: Secondary Status: Chronic Qualifiers: Multiple myeloma remission status: unspecified Qualified Code(s): C90.00 - Multiple myeloma not having achieved remission (5) COPD (chronic obstructive pulmonary disease) Priority: Primary Status: Chronic Qualifiers: COPD type: emphysema Emphysema type: panlobular Qualified Code(s): J43.1 - Panlobular emphysema (6) Osteoporosis Priority: Secondary Status: Chronic Qualifiers: Osteoporosis type: unspecified Qualified Code(s): M81.0 - Age-related osteoporosis without current pathological fracture (7) Anemia Priority: Secondary Status: Chronic Qualifiers: Anemia type: other cause Other causes of anemia: chronic disease, neoplastic Qualified Code(s): D63.0 - Anemia in neoplastic disease (8) Pneumonia Priority: Primary Status: Acute Qualifiers: Pneumonia type: due to unspecified organism Laterality: bilateral Qualified Code(s): J18.9 - Pneumonia, unspecified organism (9) DVT prophylaxis Priority: Secondary Status: Acute (10) Hypokalemia Priority: Secondary Status: Resolved Hospital course: Ms. Dahl is a 78 year old female with PMH of multiple myeloma, dementia, COPD, HTN, CVA, anemia who was admitted for acute respiratory distress with hypoxia secondary to COPD exacerbation and PNA. Patient was started on IV steroids and IV abx. She was placed on O2 support and slowly titrated off oxygen therapy as she clinically improved. Patient responded well to abx and steroid therapy and has been transitioned to PO Prednisone. Pt is from a care home [place] facility. She was seen and examined earlier this morning. Saturating well on room air and back to baseline respiratory status. She is medically stable for discharge back to [place] with outpatient follow up with PCP and pulmonology. Pt is to continue oral Prednisone and Levaquin after discharge. Discharge discussed with: patient, nurse, social work, case management - Time Spent with Patient Total time spent providing and/or coordinating discharge services: 35 minutes Time spent: Greater than 30 minutes - Discharge Medications Prescriptions: New Ipratropium/Albuterol Neb [Duoneb] 3 ml IH QIDR PRN inhsol PRN Reason: Shortness Of Breath levoFLOXacin [Levaquin] 750 mg PO DAILY #1 tablet predniSONE [PredniSONE] 40 mg PO DAILY #3 tablet Continued Aspirin Enteric Coated [Aspirin EC] 81 mg PO DAILY Carvedilol 3.125 mg PO BID #60 tablet Donepezil HCl [Aricept] 5 mg PO HS Pramipexole [Mirapex] 0.5 mg PO HS Acetaminophen [Extra Strength Non-Aspirin] 500 mg PO QID PRN PRN Reason: Pain Cyanocobalamin (Vitamin B-12) [Vitamin B12] 1,000 mcg PO DAILY Carboxymethylcellulose Sodium [Refresh Tears] 1 drop BOTH EYES BID Acyclovir [Zovirax] 400 mg PO BID #60 tablet Lisinopril 2.5 mg PO DAILY Loperamide [Imodium] 2 mg PO Q8H PRN PRN Reason: Diarrhea Calcium Carbonate [Tums] 1,000 mg PO Q4HR PRN #30 tab.chew PRN Reason: Pain Acetaminophen [Tylenol] 650 mg PO QID HydrOXYzine 10 mg PO Q8HR PRN PRN Reason: Anxiety Guaifenesin [Cough Syrup] 100 mg PO Q4HR PRN PRN Reason: Cough Ondansetron ODT [Zofran ODT] 4 mg PO Q6HR PRN PRN Reason: Nausea Calcium Carbonate [Tums] 1,000 mg PO Q4HR Mirtazapine [Remeron] 15 mg PO HS Mirabegron [Myrbetriq] 50 mg PO DAILY Atorvastatin Calcium [Lipitor] 20 mg PO DAILY Montelukast [Singulair] 10 mg PO HS Omeprazole [PriLOSEC] 20 mg PO DAILY Home Medications: Aspirin Enteric Coated [Aspirin EC] 81 mg PO DAILY 04/02/15 [History] Carvedilol 3.125 mg PO BID #60 tablet 03/06/16 [Rx] Donepezil HCl [Aricept] 5 mg PO HS 07/24/16 [History] Pramipexole [Mirapex] 0.5 mg PO HS 01/19/17 [History] Acetaminophen [Extra Strength Non-Aspirin] 500 mg PO QID PRN 12/02/17 [History] Cyanocobalamin (Vitamin B-12) [Vitamin B12] 1,000 mcg PO DAILY 12/02/17 [History] Carboxymethylcellulose Sodium [Refresh Tears] 1 drop BOTH EYES BID 12/09/17 [History] Acyclovir [Zovirax] 400 mg PO BID #60 tablet 09/08/18 [Rx] Lisinopril 2.5 mg PO DAILY 09/08/18 [History] Loperamide [Imodium] 2 mg PO Q8H PRN 09/08/18 [History] Calcium Carbonate [Tums] 1,000 mg PO Q4HR PRN #30 tab.chew 09/29/18 [Rx] Acetaminophen [Tylenol] 650 mg PO QID 11/18/18 [History] Atorvastatin Calcium [Lipitor] 20 mg PO DAILY 12/01/18 [History] Calcium Carbonate [Tums] 1,000 mg PO Q4HR 12/01/18 [History] Guaifenesin [Cough Syrup] 100 mg PO Q4HR PRN 12/01/18 [History] HydrOXYzine 10 mg PO Q8HR PRN 12/01/18 [History] Mirabegron [Myrbetriq] 50 mg PO DAILY 12/01/18 [History] Mirtazapine [Remeron] 15 mg PO HS 12/01/18 [History] Ondansetron ODT [Zofran ODT] 4 mg PO Q6HR PRN 12/01/18 [History] Montelukast [Singulair] 10 mg PO HS 12/02/18 [History] Omeprazole [PriLOSEC] 20 mg PO DAILY 12/02/18 [History] Ipratropium/Albuterol Neb [Duoneb] 3 ml IH QIDR PRN inhsol 12/06/18 [Rx] levoFLOXacin [Levaquin] 750 mg PO DAILY #1 tablet 12/06/18 [Rx] predniSONE [PredniSONE] 40 mg PO DAILY #3 tablet 12/06/18 [Rx] Allergies/Adverse Reactions: Allergy/AdvReac Type Severity Reaction Status Date / Time No Known Allergies Allergy Verified 12/01/18 08:15 Date of admission: 12/02/18 15:22 Primary care physician: PCP NONE Consults: 12/01/18 18:17 Consult to Pastoral Services [CONS] Routine Comment: Pt request Consult to Uniform Designer [CONS] Routine Reason for SW Consult: From [facility] in [place] - current treatment at [facility] 12/01/18 18:35 Consult to Nurse Navigator [CONS] Routine Comment: 12/01/18 18:37 Consult to Pulmonology [CONS] Routine Consulting Provider: [facility]red Reason for Consult: Multifocal pneumonia , bilateral mucous plug Time Notified: 18:39 Call Completed: No 12/02/18 03:41 Consult to Nurse Navigator [CONS] Routine Comment: Discharging clinician: Thelma Worley Anticipated date of discharge: 12/06/18 - Constitutional Vitals: Temp Pulse Resp BP Pulse Ox 97.5 F L 80 18 154/72 91 12/06/18 08:09 12/06/18 08:09 12/06/18 10:44 12/06/18 08:09 12/06/18 10:44 General appearance: Present: A&O X 3 Exam: General: No acute distress, Frail appearing elderly female HEENT: EOMI, NC/AT, no scleral icterus Respiratory: No rales, equal air entry bilaterally, no wheezing Cardiovascular: Regular, Rate, Rhythm, No murmurs GI: Soft, Non tender, non distended, normal bowel sounds Ext: No edema, no tenderness, positive pulses Neuro: no focal deficits Rest of the clinical exam is noncontributory - Patient Status Disposition: Transfer LTC - Discharge Instructions Follow Up With: NONE,PCP [Primary Care Provider] - Forms: ED Satisfaction Letter Additional Instructions: 1. Please follow up with your primary care physician within five days after your discharge from the hospital. 2. Please follow up with pulmonology within one to two weeks after your discharge from the hospital. 3. Please continue oral antibiotic and prednisone as prescribed 4. Please resume all your home medications as prescribed by your primary care physician. 5. Please seek medical help immediately if you have difficulty breathing or if chest pain occurs. - Diet and Activity Activity: as per physical therapy Diet: low fat, low cholesterol, low salt diet
[2018-12-06] MEDS: Mirabegron [Myrbetriq] 50 MG PO SCH (11:29)
[2018-12-06 11:53] VITALS: BP 124/71
== END 2018-12-06 13:23 | DRG 194 ==
LOC: 2ANU 08:53 → EMEROOARM 08:53 → SUATTDRO 14:24 → 2ANU 15:20
PROVIDERS: ADMIT Internal Medicine Nephrology; ATTEND Internal Medicine

== ENCOUNTER 2019-03-08 01:14 | Observation (INO) ==
[2019-03-08] MEDS ORDERED: Ipratropium/Albuterol Neb 3 ML IH PRN (04:19)
[2019-03-08] MEDS ORDERED: Acetaminophen 325 MG TABLET PO PRN ×2 (04:35→05:15)
[2019-03-08] MEDS ORDERED: traMADol 50 MG TABLET PO PRN (04:35)
[2019-03-08] MEDS ORDERED: GuaiFENesin Liq 200 MG/10 ML UDC PO PRN (04:36)
[2019-03-08] MEDS ORDERED: Artificial Tears SOLN 15 ML BOTTLE BOTH EYES PRN (05:15)
[2019-03-08] MEDS ORDERED: Ondansetron ODT 4 MG TAB.RAPDIS PO PRN (05:15)
--- NOTE | 2019-03-08 05:23 | Internal Med History&Physical ---
Date of Encounter: 03/08/19 Time of Encounter: 05:22 Internal Medicine - H&P: HPI Chief complaint: chest pain Admitted From: Home Plans for Post Hospital Care: Home History of present illness: Nelly Dahl is an 78 year old woman with multiple comorbidities including CVA, COPD, iron deficiency anemia and multiple myeloma currently on palliative immunotherapy who was admitted here about 3 months ago at which time she was managed for acute hypoxic respiratory failure in the setting of COPD exacerbation as well as pneumonia. She resides at a intermediate and she was sent to [place] [facility] with complaints of left-sided chest pain radiating to her back accompanied by shortness of breath. He describes the pain as sharp pain. She also reports cough that is productive of white sputum. She denies nausea, vomiting, diarrhea, dysuria him a fever and chills. It is stated that she was hypoxic on room air by EMS so she was placed on 2 L of oxygen. On auscultation she had some crackles. She was given a breathing treatment and pain medications. Her serum BNP was 162. Troponin was negative. CT scan showed advanced emphysema but no acute processes. Transferred here for further care. Vitals: Reviewed General: Petite-appearing elderly woman sitting up in bed in no acute distress and able to speak in full sentences. Skin: Warm and dry. HEENT: Moist mucous membranes. No conjunctivae pallor. Neck: No lymphadenopathy. No JVD. No carotid bruits. No palpable thyroid. Chest: Diminished thoracic expansion. Reduced breath sounds bilaterally with crackles auscultated in the right base. Heart: Normal S1 & S2; rhythmic. No rubs or murmurs. Abdomen: Non-distended, soft and non-tender to palpation. No peritoneal reaction. Extremities: No clubbing, cyanosis or edema. No calf tenderness. Normal distal pulses. Neurological: Awake, alert and oriented to person, place and time. No focal deficits. Psych: Affect appropriate. Assessment/Plan 1. Hypoxic respiratory failure: Unclear if this is an acute occurrence as the patient reports requiring oxygen intermittently ever since her last admission and this may be her baseline especially seeing the degree of advanced emphysematous changes she has in her lungs. She also has scarring in the right base which may be why I auscultate crackles there but to be sure there is no fluid component will give 2 doses of furosemide 20mg today and stop. It may very well be a simple COPD exacerbation given the concomitance of cough with her dyspnea perhaps triggered by a viral entity. Will provide nebulizer therapy as needed, short course of oral steroids and antitussive agents. 2. Chest pain: EKG showing NSR. Troponin negative. CTA unable to be performed given CrCl however. She is not tachycardic, tachypneic nor is she having pleuritic chest pain that would cause a higher degree of suspicion for PE. Will obtain another troponin for assessment. 3. Dementia: On donepezil. 4. Multiple myeloma: On acyclovir for prophylaxis while on immunotherapy. Past Med Surg Social Fam HX - Past Medical History Medical history: arthritis, atrial fibrillation, cancer, COPD, CVA, dementia, GERD, hypertension, other Additional medical history: multiple myeloma. alzheimer's disease, whelan's esophagus, restless leg syndrome Psychiatric history: depression - Past Surgical History Surgical History: no surgical history - Social History Smoking Status: Former smoker Smokeless Tobacco Status: No Alcohol use: none Drug use: none - Family History Mother Living Status: Hx Family Cardiac Disorders: Yes Hx Family Endocrine Disorder: Yes (DM) Internal Medicine - H&P: Meds Aspirin Enteric Coated [Aspirin EC] 81 mg PO DAILY 04/02/15 [History] Carvedilol 3.125 mg PO BID #60 tablet 03/06/16 [Rx] Donepezil HCl [Aricept] 5 mg PO HS 07/24/16 [History] Pramipexole [Mirapex] 0.5 mg PO HS 01/19/17 [History] Acyclovir [Zovirax] 400 mg PO BID #60 tablet 09/08/18 [Rx] Loperamide [Imodium] 2 mg PO Q8H PRN 09/08/18 [History] Acetaminophen [Tylenol] 650 mg PO QID PRN 11/18/18 [History] Atorvastatin Calcium [Lipitor] 20 mg PO DAILY 12/01/18 [History] Mirabegron [Myrbetriq] 50 mg PO DAILY 12/01/18 [History] Mirtazapine [Remeron] 15 mg PO DAILY 12/01/18 [History] Ondansetron ODT [Zofran ODT] 4 mg PO Q6HR PRN 12/01/18 [History] Montelukast [Singulair] 10 mg PO HS 12/02/18 [History] Omeprazole [PriLOSEC] 20 mg PO DAILY 12/02/18 [History] Ipratropium/Albuterol Neb [Duoneb] 3 ml IH QIDR PRN inhsol 12/06/18 [Rx] Buspirone HCl [Buspar] 5 mg PO BID 12/15/18 [History] Citalopram [CeleXA] 10 mg PO DAILY 03/07/19 [History] Cyanocobalamin (Vitamin B-12) [Vitamin B-12] 500 mcg PO DAILY 03/07/19 [History] Carboxymethylcellulose Sodium [Refresh Tears] 1 drop OP BID PRN 03/08/19 [History] guaiFENesin [Robafen] 10 ml PO Q4HR PRN 03/08/19 [History] 3 Allergy/AdvReac Type Severity Reaction Status Date / Time No Known Allergies Allergy Verified 12/29/18 08:03 All Systems PM: A 10-system review of systems was performed and is negative for pertinent findings except as documented above in the HPI. - Constitutional Vitals: Temp Pulse Resp BP Pulse Ox 97.7 F 62 17 142/82 93 03/08/19 03:27 03/08/19 03:27 03/08/19 03:27 03/08/19 03:27 03/08/19 03:27 Exam: . - Time Spent With Patient Total time spent is greater than 50% in coordination of care (as documented) at patient's floor/unit and/or counseling patient:
[2019-03-08] MEDS: predniSONE 20 MG TABLET PO SCH (08:49)
[2019-03-08] MEDS: Mirtazapine 15 MG TABLET PO SCH (08:50)
[2019-03-08] MEDS: Aspirin Enteric Coated 81 MG Tablet PO SCH (08:50)
[2019-03-08] MEDS: Cyanocobalamin (B-12) 1,000 MCG TABLET PO SCH (08:50)
[2019-03-08] MEDS: Furosemide 40 MG/4 ML VIAL IVP SCH ×2 (08:51→20:22)
[2019-03-08] MEDS: (Mirabegron [Myrbetriq] 50 MG) PO SCH (09:06)
--- NOTE | 2019-03-08 15:27 | Internal Med Progress Note ---
Hospitalist Progress Note - Encounter Date of Encounter: 03/08/19 Time of Encounter: 15:21 - Subjective Interval History: Ms. Dahl is an 78 year old woman with multiple comorbidities including CVA, COPD, iron deficiency anemia and multiple myeloma currently on palliative immunotherapy who was admitted here about 3 months ago at which time she was managed for acute hypoxic respiratory failure in the setting of COPD exacerbation as well as pneumonia. She resides at a intermediate and she was sent to [facility] with complaints of left-sided chest pain radiating to her back accompanied by shortness of breath. She also stated she has recurrent UTI. Her CT scan showed advanced emphysema but no acute processes. She was admitted in the hospital and placed her on tele. Her UA seems to be abnormal and her symptoms are concerning for pneumonia. Pt still has pleurisy chest pain associated with SOB. - Exam Vitals: Temp Pulse Resp BP Pulse Ox 97.8 F 64 16 148/83 91 03/08/19 12:00 03/08/19 12:00 03/08/19 12:00 03/08/19 12:00 03/08/19 06:41 Exam: Gen: Alert, awake, Oriented to time,place and person Chest: Diminished breath sounds B/L, No wheezing, No crackles, No rales Heart: S1S2+ RRR No murmurs Abd: Soft, NT, BS +, No organomegaly Ext: No edema, pulses are palpable, No calf tenderness Neuro : No acute focal neuro deficits noticed Skin: No rash. - Assessment and Plan (1) Acute on chronic respiratory failure Current Visit: No Status: Acute Assessment and Plan: Due to pneumonia cont on O2 cont frequent bronchodilator therapy started her on empirical antibiotic IV Rocephin continue close monitoring (2) Pneumonia Current Visit: No Status: Acute Assessment and Plan: Mostly bacterial started her on empirical antibiotic IV Rocephin continue close monitoring (3) COPD (chronic obstructive pulmonary disease) Current Visit: No Status: Chronic Assessment and Plan: Mild exacerbation continue PO steroids on frequent bronchodilator therapy (4) Atypical chest pain Current Visit: No Status: Acute Assessment and Plan: Her chest pain seems to be pleurisy chest pain with pneumonia Serial trop x 3 negative No acute ischemic changes on EKG continue on tele (5) UTI (urinary tract infection) Current Visit: No Status: Acute Assessment and Plan: Reviewed her UA from [facility] concerning for UTI Urine cx - incubating started on empirical abx Rocephin (6) CKD (chronic kidney disease) stage 4, GFR 15-29 ml/min Current Visit: No Status: Chronic Assessment and Plan: stable Cr at baseline - Time Spent with Patient Total time spent is greater than 50% in coordination of care (as documented) at patient's floor/unit and/or counseling patient: Internal Medicine: Result - Labs Labs: Cardiac Enzymes 03/08/19 Range/Units 05:40 Troponin I < 0.03 (< 0.04) ng/mL Consult Discharge Plan - Plan Referrals: NONE,PCP [Primary Care Provider] - (2) Pneumonia Qualifiers: Pneumonia type: due to unspecified organism Laterality: bilateral Qualified Code(s): J18.9 - Pneumonia, unspecified organism (3) COPD (chronic obstructive pulmonary disease) Qualifiers: COPD type: emphysema Emphysema type: panlobular Qualified Code(s): J43.1 - Panlobular emphysema (5) UTI (urinary tract infection) Qualifiers: Urinary tract infection type: acute cystitis Hematuria presence: without hematuria Qualified Code(s): N30.00 - Acute cystitis without hematuria
[2019-03-09] MEDS ORDERED: cefTRIAXone 1,000 MG in Water for inj. (sterile) 10 ML IVP SCH (01:00)
[2019-03-09 03:08] LABS: Hematocrit 29.2 % (35.3-44.9); Hemoglobin 8.8 g/dL (11.5-15.4); Mean Corpuscular HGB Conc 30.1 g/dL (31.6-35.5); Mean Corpuscular Hemoglobin 29.1 pg (28.0-33.3); Mean Corpuscular Volume 96.7 fL (83.0-100.0); Mean Platelet Volume 12.2 fL (9.4-12.4); Platelet Count 152 K/mcL (140-400); Red Blood Count 3.02 M/mcL (3.82-4.97); Red Cell Distribution Width 17.3 % (11.5-14.5); White Blood Count 4.3 K/mcL (4.3-11.1)
[2019-03-09 03:31] LABS: Calcium 8.5 mg/dL (8.6-10.3); Magnesium 1.8 mg/dL (1.6-2.6); Potassium 4.1 mEq/L (3.5-5.1)
[2019-03-09 07:38] VITALS: BP 118/73
[2019-03-09] MEDS: Aspirin Enteric Coated 81 MG Tablet PO SCH (08:02)
[2019-03-09] MEDS: Cyanocobalamin (B-12) 1,000 MCG TABLET PO SCH (08:02)
[2019-03-09] MEDS: predniSONE 20 MG TABLET PO SCH (08:03)
[2019-03-09] MEDS: Mirtazapine 15 MG TABLET PO SCH (08:04)
[2019-03-09] MEDS: (Mirabegron [Myrbetriq] 50 MG) PO SCH (08:14)
--- NOTE | 2019-03-09 11:07 | Discharge Summary ---
- NOTES TO OUTPATIENT PROVIDER Notes to Outpatient Provider: f/u with PCP in one week. Date of Encounter: 03/09/19 Time of Encounter: 10:30 - Discharge Diagnosis (1) Acute on chronic respiratory failure Priority: Primary Status: Acute Qualifiers: Respiratory failure complication: hypoxia Qualified Code(s): J96.21 - Acute and chronic respiratory failure with hypoxia (2) Pneumonia Priority: Primary Status: Acute Qualifiers: Pneumonia type: due to unspecified organism Laterality: bilateral Qualified Code(s): J18.9 - Pneumonia, unspecified organism (3) COPD (chronic obstructive pulmonary disease) Priority: Primary Status: Chronic Qualifiers: COPD type: emphysema Emphysema type: panlobular Qualified Code(s): J43.1 - Panlobular emphysema (4) UTI (urinary tract infection) Priority: Primary Status: Acute Qualifiers: Urinary tract infection type: acute cystitis Hematuria presence: without hematuria Qualified Code(s): N30.00 - Acute cystitis without hematuria (5) Atypical chest pain Priority: Secondary Status: Acute (6) CKD (chronic kidney disease) stage 4, GFR 15-29 ml/min Priority: Secondary Status: Chronic Hospital course: Ms. Dahl is an 78 year old woman with multiple comorbidities including CVA, COPD, iron deficiency anemia and multiple myeloma currently on palliative immunotherapy who was admitted here about 3 months ago at which time she was managed for acute hypoxic respiratory failure in the setting of COPD exacerbation as well as pneumonia. She resides at a retirement and she was sent to [place] [facility] with complaints of left-sided chest pain radiating to her back accompanied by shortness of breath. She also stated she has recurrent UTI. Her CT scan showed advanced emphysema but no acute processes. She was admitted in the hospital and placed her on tele. Her UA seems to be abnormal and her symptoms are concerning for pneumonia. She was started on empirical abx IV Rocephin and placed her on PO systemic steroids along with frequent bronchodilator therapy. Today pt is breathing comfortably on RA, she is more alert, awake and O x 4. Will d/c her back to ECF in stable condition today. - Time Spent with Patient Total time spent providing and/or coordinating discharge services: - Discharge Medications Prescriptions: New Cephalexin [Keflex] 500 mg PO BID #10 capsule predniSONE [PredniSONE] 40 mg PO DAILY #10 tablet Continued Aspirin Enteric Coated [Aspirin EC] 81 mg PO DAILY Carvedilol 3.125 mg PO BID #60 tablet Pramipexole [Mirapex] 0.5 mg PO DAILY Acyclovir [Zovirax] 400 mg PO BID #60 tablet Loperamide [Imodium] 2 mg PO Q8H PRN PRN Reason: Diarrhea Ondansetron ODT [Zofran ODT] 4 mg PO Q6HR PRN PRN Reason: Nausea Mirabegron [Myrbetriq] 50 mg PO DAILY Montelukast [Singulair] 10 mg PO HS Omeprazole [PriLOSEC] 20 mg PO DAILY Ipratropium/Albuterol Neb [Duoneb] 3 ml IH QIDR PRN inhsol PRN Reason: Shortness Of Breath Buspirone HCl [Buspar] 5 mg PO BID Carboxymethylcellulose Sodium [Refresh Tears] 1 drop OP BID PRN PRN Reason: Dry Eyes guaiFENesin [Robafen] 10 ml PO Q4HR PRN PRN Reason: Cough Donepezil HCl [Aricept] 10 mg PO HS Melatonin 6 mg PO HS Mirtazapine [Remeron] 7.5 mg PO HS Potassium Chloride [K-Tab ER] 20 meq PO DAILY Acetaminophen [Tylenol] 650 mg PO Q6HR PRN PRN Reason: Pain Citalopram [CeleXA] 10 mg PO DAILY Home Medications: Aspirin Enteric Coated [Aspirin EC] 81 mg PO DAILY 04/02/15 [History] Carvedilol 3.125 mg PO BID #60 tablet 03/06/16 [Rx] Pramipexole [Mirapex] 0.5 mg PO DAILY 01/19/17 [History] Acyclovir [Zovirax] 400 mg PO BID #60 tablet 09/08/18 [Rx] Loperamide [Imodium] 2 mg PO Q8H PRN 09/08/18 [History] Mirabegron [Myrbetriq] 50 mg PO DAILY 12/01/18 [History] Ondansetron ODT [Zofran ODT] 4 mg PO Q6HR PRN 12/01/18 [History] Montelukast [Singulair] 10 mg PO HS 12/02/18 [History] Omeprazole [PriLOSEC] 20 mg PO DAILY 12/02/18 [History] Ipratropium/Albuterol Neb [Duoneb] 3 ml IH QIDR PRN inhsol 12/06/18 [Rx] Buspirone HCl [Buspar] 5 mg PO BID 12/15/18 [History] Citalopram [CeleXA] 10 mg PO DAILY 03/07/19 [History] Acetaminophen [Tylenol] 650 mg PO Q6HR PRN 03/08/19 [History] Carboxymethylcellulose Sodium [Refresh Tears] 1 drop OP BID PRN 03/08/19 [History] Donepezil HCl [Aricept] 10 mg PO HS 03/08/19 [History] Melatonin 6 mg PO HS 03/08/19 [History] Mirtazapine [Remeron] 7.5 mg PO HS 03/08/19 [History] Potassium Chloride [K-Tab ER] 20 meq PO DAILY 03/08/19 [History] guaiFENesin [Robafen] 10 ml PO Q4HR PRN 03/08/19 [History] Cephalexin [Keflex] 500 mg PO BID #10 capsule 03/09/19 [Rx] predniSONE [PredniSONE] 40 mg PO DAILY #10 tablet 03/09/19 [Rx] Allergies/Adverse Reactions: Allergy/AdvReac Type Severity Reaction Status Date / Time No Known Allergies Allergy Verified 12/29/18 08:03 Date of admission: 03/08/19 03:22 Primary care physician: PCP NONE Consults: 03/08/19 06:25 Consult to Derrick Boat Captain [CONS] Routine Reason for SW Consult: Patient needs to fill out DNR paperwork 03/08/19 15:33 Consult to Nutrition [CONS] Routine Comment: Consulting Provider: NUTRITION Reason for Dietary Consult: PO Supplementation 03/09/19 09:31 Consult to Nurse Navigator [CONS] Routine Comment: PNEUMONIA, COPD - Constitutional Vitals: Temp Pulse Resp BP Pulse Ox 97.5 F L 63 16 118/73 93 03/09/19 07:36 03/09/19 07:36 03/09/19 07:36 03/09/19 07:36 03/09/19 07:36 General appearance: Present: A&O X 3, no acute distress, answers questions appropriately Exam: Gen: Alert, awake, Oriented to time,place and person Chest: Diminished breath sounds B/L, No wheezing, No crackles, No rales Heart: S1S2+ RRR No murmurs Abd: Soft, NT, BS +, No organomegaly Ext: No edema, pulses are palpable, No calf tenderness Neuro : No acute focal neuro deficits noticed Skin: No rash. - Patient Status Disposition: Transfer SNF Condition: Good Overall status at discharge: patient is back to baseline - Discharge Instructions Follow Up With: NONE,PCP [Primary Care Provider] - - Diet and Activity Activity: increase activity as tolerated, wear oxygen at night (2 lit) Diet: low salt diet - VTE Documentation of Mechanical Device: Graduated compression elastic hosiery
--- NOTE | 2019-03-09 11:09 | Physician Discharge Referral ---
ExtendedCare Referral Info Transfer To: [facility] Provider in Charge after Transfer: PCP Institutional Level of Care: Skilled - Diagnosis (1) Acute on chronic respiratory failure Status: Acute (2) Pneumonia Status: Acute (3) COPD (chronic obstructive pulmonary disease) Status: Chronic (4) UTI (urinary tract infection) Status: Acute (5) Atypical chest pain Status: Acute (6) CKD (chronic kidney disease) stage 4, GFR 15-29 ml/min Status: Chronic - Transfer Medications Prescriptions: Cephalexin [Keflex] 500 mg PO BID #10 capsule Prescription Printed predniSONE [PredniSONE] 40 mg PO DAILY #10 tablet Prescription Printed Home Medications: Aspirin Enteric Coated [Aspirin EC] 81 mg PO DAILY 04/02/15 [History] Carvedilol 3.125 mg PO BID #60 tablet 03/06/16 [Rx] Pramipexole [Mirapex] 0.5 mg PO DAILY 01/19/17 [History] Acyclovir [Zovirax] 400 mg PO BID #60 tablet 09/08/18 [Rx] Loperamide [Imodium] 2 mg PO Q8H PRN 09/08/18 [History] Mirabegron [Myrbetriq] 50 mg PO DAILY 12/01/18 [History] Ondansetron ODT [Zofran ODT] 4 mg PO Q6HR PRN 12/01/18 [History] Montelukast [Singulair] 10 mg PO HS 12/02/18 [History] Omeprazole [PriLOSEC] 20 mg PO DAILY 12/02/18 [History] Ipratropium/Albuterol Neb [Duoneb] 3 ml IH QIDR PRN inhsol 12/06/18 [Rx] Buspirone HCl [Buspar] 5 mg PO BID 12/15/18 [History] Citalopram [CeleXA] 10 mg PO DAILY 03/07/19 [History] Acetaminophen [Tylenol] 650 mg PO Q6HR PRN 03/08/19 [History] Carboxymethylcellulose Sodium [Refresh Tears] 1 drop OP BID PRN 03/08/19 [History] Donepezil HCl [Aricept] 10 mg PO HS 03/08/19 [History] Melatonin 6 mg PO HS 03/08/19 [History] Mirtazapine [Remeron] 7.5 mg PO HS 03/08/19 [History] Potassium Chloride [K-Tab ER] 20 meq PO DAILY 03/08/19 [History] guaiFENesin [Robafen] 10 ml PO Q4HR PRN 03/08/19 [History] Cephalexin [Keflex] 500 mg PO BID #10 capsule 03/09/19 [Rx] predniSONE [PredniSONE] 40 mg PO DAILY #10 tablet 03/09/19 [Rx] Allergies/Adverse Reactions: Allergy/AdvReac Type Severity Reaction Status Date / Time No Known Allergies Allergy Verified 12/29/18 08:03 - Respiratory Orders Smoking Cessation: Smoking cessation has been advised. For more information, call the [place] Tobacco Quit Line at 4-211-UKYYNOW. CERTIFICATION: I certify that the transfer of the above named patient to an Extended Care Facility is necessary for the continuing treatment of the diagnosis listed. The above information is true and accurate reflection of patient's current condition. Confidential - Redisclosure prohibited without a patient's written consent.
--- NOTE | 2019-03-09 15:46 | Electrocardiograph Report ---
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
== END 2019-03-09 12:47 ==
LOC: 3BNU → SUATTDRO 03:22
PROVIDERS: ADMIT Internal Medicine; ATTEND Family Medicine

== ENCOUNTER 2020-06-01 21:27 | Inpatient (IN) ==
[2020-06-02] MEDS ORDERED: Naloxone 0.4 MG/ML INJ IVP PRN (01:29)
[2020-06-02] MEDS ORDERED: *HR* HYDROcodone/Acet 5/325 mg TABLET PO ONE (02:28)
[2020-06-02] MEDS ORDERED: 0.9 % Sodium Chloride 1,000 ML IVC ONE (02:29)
[2020-06-02 04:42] LABS: Mean Corpuscular Hemoglobin 33.8 pg (28.0-33.3); White Blood Count 5.3 K/mcL (4.3-11.1)
[2020-06-02 04:43] LABS: Hematocrit 23.2 % (35.3-44.9); Immature Granulocytes % 0.8 % (0-4); Immature Platelets 8.6 % (1.1-6.1); Lymphocytes # 0.4 K/mcL (0.6-4.6); Lymphocytes % 7.6 %; Mean Corpuscular HGB Conc 30.2 g/dL (31.6-35.5); Mean Corpuscular Volume 112.1 fL (83.0-100.0); Mean Platelet Volume 13.3 fL (9.4-12.4); Monocytes # 0.5 K/mcL (0.0-1.3); Monocytes % 9.3 %; Neutrophils # 4.4 K/mcL (1.6-8.9); Nucleated Red Blood Cells 1.1 /100 WBC (0); Red Blood Count 2.07 M/mcL (3.82-4.97); Red Cell Distribution Width 13.5 % (11.5-14.5); Segmented Neutrophils % 82.3 %
[2020-06-02 04:48] LABS: Platelet Count 48 K/mcL (140-400)
[2020-06-02 04:49] LABS: INR 1.2; Prothrombin Time 13.3 Seconds (9.4-12.1)
[2020-06-02 04:51] LABS: Activated Partial Thrombo Time 28.6 Seconds (26.0-36.0)
[2020-06-02 05:04] LABS: Large Platelets Present (Not Present); Platelet Estimate Decreased (Normal)
[2020-06-02 05:19] LABS: Albumin/Globulin Ratio 1.4 (1.1-2.2); Bilirubin,Total 0.4 mg/dL (0.3-1.0); Calcium 7.9 mg/dL (8.6-10.3); Globulin 2.1 g/dL (2.4-3.5); Magnesium 2.1 mg/dL (1.6-2.6); Phosphorous 4.2 mg/dL (2.7-4.5); Potassium 4.8 mEq/L (3.5-5.1); Total Protein 5.1 g/dL (6.4-8.9); Troponin I 0.1 ng/mL (< 0.04)
[2020-06-02] MEDS ORDERED: 0.9 % Sodium Chloride 250 ML IVC SCH (06:15)
[2020-06-02 14:21] LABS: Hematocrit 30.2 % (35.3-44.9)
[2020-06-02 14:22] LABS: Hemoglobin 9.4 g/dL (11.5-15.4)
[2020-06-02] MEDS ORDERED: Acetaminophen 325 MG TABLET PO PRN (15:20)
[2020-06-02] MEDS: Melatonin 3 MG TABLET PO SCH (21:41)
[2020-06-02] MEDS: Mirtazapine 15 MG TABLET PO SCH (21:42)
[2020-06-03 03:09] LABS: Eosinophils % 0.1 %; Hematocrit 27.1 % (35.3-44.9); Hemoglobin 8.2 g/dL (11.5-15.4); Lymphocytes % 4.1 %; Mean Corpuscular HGB Conc 30.3 g/dL (31.6-35.5)
[2020-06-03 03:11] LABS: Immature Granulocytes % 1.3 % (0-4); Immature Platelets 9.7 % (1.1-6.1); Lymphocytes # 0.3 K/mcL (0.6-4.6); Mean Corpuscular Hemoglobin 32.8 pg (28.0-33.3); Mean Corpuscular Volume 108.4 fL (83.0-100.0); Mean Platelet Volume 13.6 fL (9.4-12.4); Monocytes # 0.7 K/mcL (0.0-1.3); Monocytes % 8.5 %; Nucleated Red Blood Cells 1.3 /100 WBC (0); Red Cell Distribution Width 16.6 % (11.5-14.5); White Blood Count 8.3 K/mcL (4.3-11.1)
[2020-06-03 03:14] LABS: Neutrophils # 7.1 K/mcL (1.6-8.9); Platelet Count 51 K/mcL (140-400)
[2020-06-03 03:23] LABS: Calcium 7.9 mg/dL (8.6-10.3); Magnesium 2.2 mg/dL (1.6-2.6); Phosphorous 4.9 mg/dL (2.7-4.5); Potassium 4.9 mEq/L (3.5-5.1)
[2020-06-03] MEDS: Aspirin Enteric Coated 81 MG Tablet PO SCH (09:10)
[2020-06-03] MEDS ORDERED: Furosemide 40 MG/4 ML VIAL IVP ONE (09:23)
[2020-06-03] MEDS: Ipratropium/Albuterol Neb 3 ML IH PRN ×2 (11:05→23:06)
[2020-06-03] MEDS ORDERED: CeFAZolin Syr 2,000MG/20 ML 2,000 MG/20 ML SYRINGE IVPB ONE (12:52)
[2020-06-03] MEDS: Mirtazapine 15 MG TABLET PO SCH (22:21)
[2020-06-03] MEDS: Melatonin 3 MG TABLET PO SCH (22:21)
[2020-06-03] MEDS: Ondansetron 4 MG/2 ML VIAL IVP PRN (23:03)
[2020-06-04 00:25] LABS: Hemoglobin 9.4 g/dL (11.5-15.4)
[2020-06-04 00:27] LABS: Basophils % 0.1 %; Immature Granulocytes % 1.1 % (0-4); Immature Platelets 11.8 % (1.1-6.1); Lymphocytes # 0.5 K/mcL (0.6-4.6); Lymphocytes % 4.2 %; Mean Corpuscular HGB Conc 30.3 g/dL (31.6-35.5); Mean Corpuscular Hemoglobin 33.2 pg (28.0-33.3); Mean Corpuscular Volume 109.5 fL (83.0-100.0); Mean Platelet Volume 13.6 fL (9.4-12.4); Monocytes % 7.8 %; Nucleated Red Blood Cells 1.1 /100 WBC (0); Red Blood Count 2.83 M/mcL (3.82-4.97); Segmented Neutrophils % 86.8 %; White Blood Count 12.7 K/mcL (4.3-11.1)
[2020-06-04 00:35] LABS: Platelet Count 58 K/mcL (140-400)
[2020-06-04 00:38] LABS: Calcium 8.4 mg/dL (8.6-10.3); Potassium 5.4 mEq/L (3.5-5.1)
[2020-06-04] MEDS: Piperacillin/Tazobactam 3.375 GM in 0.9 % Sodium Chloride Mini Bag 100 ML IVPB SCH ×3 (00:38→21:49)
[2020-06-04] MEDS: Aspirin Enteric Coated 81 MG Tablet PO SCH (09:55)
[2020-06-04] MEDS ORDERED: Perflutren Lipid Microsphere 1.3 ML in 0.9 % Sodium Chloride 8.7 ML IVP PRN (10:08)
[2020-06-04] MEDS ORDERED: Calcium Gluconate 1gm/50mL 1 GM/50 ML BAG IVPB ONE ×2 (14:28→21:18)
[2020-06-04 21:11] LABS: Bacteria,Urine Few per hpf (None-Few); Bilirubin,Urine Negative (Negative); Blood,Urine Negative (Negative); Clarity,Urine Clear (Clear); Color,Urine Colorless (Yellow); Glucose,Urine (UA) Normal (Normal); Ketones,Urine Negative (Negative); Leukocyte Esterase,Urine Large (Negative); Mucus,Urine Few per lpf (None-Few); Nitrite,Urine Negative (Negative); Protein,Urine Negative (Neg-Trace); RBC,Urine 0-3 per hpf (0-3); Specific Gravity,Urine 1.007 (1.010-1.025); Squamous Epithelial Cell,Urine Few per hpf (None-Few); Urobilinogen,Urine Normal (Normal)
[2020-06-04] MEDS ORDERED: *HR* Dextrose 50 % in Water (Vial) 50 ML VIAL IVP PRN (21:19)
[2020-06-04] MEDS ORDERED: Insulin LISPRO 300 UNITS/3 ML VIAL SQ ONE (21:19)
[2020-06-04] MEDS ORDERED: Dextrose Gel 15 GM/37.5 ML TUBE PO PRN ×2 (21:19)
[2020-06-04] MEDS: Melatonin 3 MG TABLET PO SCH (21:36)
[2020-06-04] MEDS: Mirtazapine 15 MG TABLET PO SCH (21:39)
[2020-06-04] MEDS: D5% in Water 1,000 ML IVC PRN (21:49)
[2020-06-04 22:00] LABS: Calcium 8.6 mg/dL (8.6-10.3); Potassium 5.8 mEq/L (3.5-5.1)
[2020-06-05] MEDS: D5% in Water 1,000 ML IVC PRN (05:52)
[2020-06-05 07:46] LABS: Basophils % 0.1 %; Monocytes % 8.5 %; Red Cell Distribution Width 15.2 % (11.5-14.5)
[2020-06-05 07:47] LABS: Hematocrit 27.1 % (35.3-44.9); Hemoglobin 8.3 g/dL (11.5-15.4); Immature Granulocytes % 1.2 % (0-4); Immature Platelets 9.3 % (1.1-6.1); Lymphocytes # 0.4 K/mcL (0.6-4.6); Lymphocytes % 3.9 %; Mean Corpuscular HGB Conc 30.6 g/dL (31.6-35.5); Mean Corpuscular Hemoglobin 33.6 pg (28.0-33.3); Mean Corpuscular Volume 109.7 fL (83.0-100.0); Mean Platelet Volume 13.3 fL (9.4-12.4); Monocytes # 0.9 K/mcL (0.0-1.3); Neutrophils # 9.3 K/mcL (1.6-8.9); Nucleated Red Blood Cells 0.6 /100 WBC (0); Red Blood Count 2.47 M/mcL (3.82-4.97); Segmented Neutrophils % 86.3 %; White Blood Count 10.8 K/mcL (4.3-11.1)
[2020-06-05 07:53] LABS: Calcium 7.9 mg/dL (8.6-10.3); Potassium 4.8 mEq/L (3.5-5.1)
[2020-06-05 08:25] LABS: Platelet Count 68 K/mcL (140-400)
[2020-06-05] MEDS: Aspirin Enteric Coated 81 MG Tablet PO SCH (08:36)
[2020-06-05] MEDS ORDERED: D5% in Water 1,000 ML IVC PRN (08:52)
[2020-06-05] MEDS: Piperacillin/Tazobactam 3.375 GM in 0.9 % Sodium Chloride Mini Bag 100 ML IVPB SCH ×2 (10:41→20:27)
[2020-06-05] MEDS ORDERED: Morphine Sulfate 2 MG/ML SYRINGE IVP ONE (11:30)
[2020-06-05] MEDS: Ondansetron 4 MG/2 ML VIAL IVP PRN (11:52)
[2020-06-05] MEDS: Mirtazapine 15 MG TABLET PO SCH (19:32)
[2020-06-05] MEDS: Melatonin 3 MG TABLET PO SCH (19:32)
[2020-06-06 07:29] LABS: Mean Platelet Volume 12.9 fL (9.4-12.4)
[2020-06-06 07:31] LABS: Hematocrit 28.8 % (35.3-44.9); Hemoglobin 8.7 g/dL (11.5-15.4); Immature Platelets 9.1 % (1.1-6.1); Mean Corpuscular HGB Conc 30.2 g/dL (31.6-35.5); Mean Corpuscular Hemoglobin 32.8 pg (28.0-33.3); Mean Corpuscular Volume 108.7 fL (83.0-100.0); Red Blood Count 2.65 M/mcL (3.82-4.97); White Blood Count 18.5 K/mcL (4.3-11.1)
[2020-06-06 07:49] LABS: Calcium 8.1 mg/dL (8.6-10.3); Potassium 5.1 mEq/L (3.5-5.1)
[2020-06-06] MEDS ORDERED: 0.9 % Sodium Chloride 250 ML IVC PRN (10:24)
[2020-06-06] MEDS ORDERED: 0.9 % Sodium Chloride 1,000 ML PRIME SCH (10:30)
[2020-06-06] MEDS: Aspirin Enteric Coated 81 MG Tablet PO SCH (11:03)
[2020-06-06] MEDS: Piperacillin/Tazobactam 3.375 GM in 0.9 % Sodium Chloride Mini Bag 100 ML IVPB SCH ×2 (11:07→23:18)
[2020-06-06 12:25] LABS: Hepatitis B Surface Antibody < 3.10 mIU/mL
[2020-06-06 12:36] LABS: Hepatitis B Surface Antigen Nonreactive (Nonreactive)
[2020-06-06] MEDS ORDERED: Heparin 1,000 UNITS/500 mL 500 ML ONE (13:04)
[2020-06-06] MEDS ORDERED: *HR* Heparin 5,000 UNIT/ML VIAL ONE ×2 (13:16→13:17)
[2020-06-06] MEDS: Melatonin 3 MG TABLET PO SCH (20:51)
[2020-06-06] MEDS: Mirtazapine 15 MG TABLET PO SCH (20:51)
[2020-06-07] MEDS ORDERED: Acetaminophen IV 1,000 MG/100 ML BAG IVPB ONE (02:54)
[2020-06-07 05:36] LABS: Basophils % 0.1 %; Immature Granulocytes % 1.3 % (0-4); Mean Corpuscular HGB Conc 29.9 g/dL (31.6-35.5); Mean Corpuscular Hemoglobin 32.8 pg (28.0-33.3)
[2020-06-07 05:37] LABS: Hematocrit 28.1 % (35.3-44.9); Hemoglobin 8.4 g/dL (11.5-15.4); Immature Platelets 7.4 % (1.1-6.1); Lymphocytes # 0.4 K/mcL (0.6-4.6); Lymphocytes % 3.1 %; Mean Corpuscular Volume 109.8 fL (83.0-100.0); Mean Platelet Volume 12.3 fL (9.4-12.4); Monocytes # 0.9 K/mcL (0.0-1.3); Monocytes % 6.8 %; Neutrophils # 11.9 K/mcL (1.6-8.9); Nucleated Red Blood Cells 0.4 /100 WBC (0); Red Blood Count 2.56 M/mcL (3.82-4.97); Red Cell Distribution Width 15.2 % (11.5-14.5); Segmented Neutrophils % 88.7 %; White Blood Count 13.4 K/mcL (4.3-11.1)
[2020-06-07 05:38] LABS: Platelet Count 79 K/mcL (140-400)
[2020-06-07 05:54] LABS: Potassium 5.1 mEq/L (3.5-5.1)
[2020-06-07] MEDS: Piperacillin/Tazobactam 3.375 GM in 0.9 % Sodium Chloride Mini Bag 100 ML IVPB SCH (09:01)
[2020-06-07] MEDS: Aspirin Enteric Coated 81 MG Tablet PO SCH (09:02)
[2020-06-07] MEDS ORDERED: *HR* LORazepam 2 MG/ML VIAL IVP PRN (10:03)
[2020-06-07] MEDS ORDERED: Atropine 1% Opth Drops 100 DROP/5 ML BOTTLE SL PRN (10:03)
[2020-06-07] MEDS ORDERED: Acetaminophen 650 MG RECTAL SUPP RC PRN (10:04)
[2020-06-07] MEDS ORDERED: Haloperidol Lactate 5 MG/ML VIAL IVP PRN (10:05)
[2020-06-08 07:16] VITALS: BP 133/78
[2020-06-08] MEDS ORDERED: *HR* HYDROmorphone (PF) 1 MG/ML SYRINGE IVP PRN (09:29)
[2020-06-08] MEDS ORDERED: *HR* FentaNYL (PF) 100 MCG/2 ML VIAL IVP PRN (09:37)
== END 2020-06-08 17:43 | disposition hospice, inpatient (51) | DRG 535 ==
LOC: 3NENU → SUATTDRO 06-02 00:40 → 3BNU 06-06 11:56 → 2ANU 06-07 16:55
PROVIDERS: ADMIT Internal Medicine; ATTEND Internal Medicine

== ENCOUNTER 2020-06-08 09:27 | Inpatient (IN) ==
[2020-06-08] MEDS ORDERED: Ondansetron 4 MG/2 ML VIAL IVP PRN (11:04)
[2020-06-08] MEDS ORDERED: Ipratropium/Albuterol Neb 3 ML IH PRN (11:04)
[2020-06-08] MEDS ORDERED: *HR* LORazepam 1 MG TABLET PO PRN (11:04)
[2020-06-08] MEDS ORDERED: *HR* FentaNYL (PF) 100 MCG/2 ML VIAL IVP PRN (11:09)
[2020-06-08] MEDS ORDERED: Atropine 1% Opth Drops 100 DROP/5 ML BOTTLE SL PRN (11:10)
[2020-06-09] MEDS: Haloperidol Lactate 5 MG/ML VIAL IVP PRN (00:01)
[2020-06-09] MEDS: Acetaminophen 650 MG RECTAL SUPP RC PRN ×3 (00:52→15:29)
[2020-06-09] MEDS ORDERED: *HR* LORazepam Oral Conc 2 MG/ML SL PRN (12:39)
[2020-06-09] MEDS: *HR* FentaNYL (PF) 100 MCG/2 ML VIAL IVP PRN (15:29)
[2020-06-10] MEDS: Haloperidol Lactate 5 MG/ML VIAL IVP PRN (02:02)
[2020-06-11] MEDS: *HR* FentaNYL (PF) 100 MCG/2 ML VIAL IVP PRN (01:41)
[2020-06-11 07:03] VITALS: BP 60/34
== END 2020-06-11 14:47 | disposition expired ==
LOC: 2ANU 18:07
PROVIDERS: ADMIT Internal Medicine Hospice and Palliative Medicine; ATTEND Internal Medicine Hospice and Palliative Medicine